=== PATIENT | male | born 1935 | race Caucasian/White ===

== ENCOUNTER → 2017-10-01 08:05 | Outpatient (CLI) | payer MEDICARE | END | disposition home or self-care (01) | LOC: D.CT 08:00 | DX: R94.30 Abnormal result of cardiovascular function study, unspecified (principal); I65.23 Occlusion and stenosis of bilateral carotid arteries ==

== ENCOUNTER 2018-09-23 12:28 | Outpatient (CLI) | payer MEDICARE ==
[~2018-09-23] VITALS: Ht 182.9 cm; Wt 109.5 kg
--- NOTE | ~2018-09-23 | HEMODYNAMI ---
PATIENT:CADE HERRON MEDICAL RECORD: [id number] : 39 LOCATION:[facility] ADMISSION DATE: 09/23/18 Generatedon:09/23/201814:22 Patient name: CADE HERRON Patient #: [id number] SSN: : 1935 Date of study: 09/23/2018 Page: Of Hemodynamic Procedure Report Patient Data Patient Demographics Procedure consent was obtained First Name: CADE Gender: Male Last Name: GOPAL : 1935 Patient #: [id number] Age: 83 year(s) Race: Unknown Additional ID: [id number] Contact details Address: [address] [address] State: [place] City: [place] Zip code: [address] Past Medical History Allergies Allergen Reaction Date Comments Reported Iodine 09/23/2018 Admission Admission Data Admission Date: 09/23/2018 Admission Time: 12:28 Lab Results Lab Result Date: 09/23/2018 Lab Result Time: 0:00 Biochemistry Name Units Result Min Max BUN mg/dl 23 --(----)-* 7 18 Creatinine mg/dl 1.4 --(----)*- 0.6 1.3 CBC Name Units Result Min Max Hemoglobin g/dl 11.4 *-(----)-- 13.5 17.5 Procedure Procedure Types Cath Procedure Diagnostic Procedure LHC C w/Coronaries Procedure Description Procedure Date Procedure Date: 09/23/2018 Procedure Start Time: 14:05 Procedure End Time: 14:18 Procedure Staff Name Function Jeff Phoenix MD Performing Physician Mi Redman RN Nurse Alexandru Roper RT Monitor Constantino Robledo RT Scrub Procedure Data Cath Procedure Fluoroscopy Diagnostic fluoroscopy Total fluoroscopy Time: 2.7 time: 2.7 min min Diagnostic fluoroscopy Total fluoroscopy dose: 747 dose: 747 mGy mGy Contrast Material Contrast Material Type Amount (ml) Isovue 300 71 Entry Location Entry Primary Successful Side Size Upsize Upsize Entry Closure Recinos ccessful Closure Location (Fr) 1 (Fr) 2 (Fr) Remarks Device Remarks Radial Right 6 Fr Mechanical artery Short Compression Diagnostic catheters Device Type Used For End Catheter Placement DIAGNOSTIC Yomi 110cm LV Angiography 5Fr catheter ([id number]) Procedure Complications No complications Procedure Medications Medication Administration Route Dosage 0.9% NaCl I.V. 100 ml/hr Oxygen etCO2 Nasal cannula 2 l/min Lidocaine 2% added to field 20 Heparin Flush Bag added to field 2 bags (1000units/500ml NS) Radial Cocktail added to field 1 syringe (Verapomil 2mg/Nitro 400mcg/Heparin 1500units) Versed I.V. 2 mg Fentanyl I.V. 50 mcg Versed I.V. 1 mg Hemodynamics Rest HGB: 11.4 (g/dl) Heart Rate: 67 (bpm) Pressure Samples Time Site Value (mmHg) Purpose Heart Use Rate(bpm) 14:07 LV 133/6,19 EDP 67 14:07 LV 128/7,18 Snapshot 66 14:08 AO 115/53(81) Pullback 66 14:08 LV 135/5,20 Pullback 66 Gradients Valve Time Site 1 Site 2 Mean SEP/DFP Peak To Heart Use (mmHg) (sec/min) Peak Rate (mmHg) (bpm) Aortic 14:08 LV AO 18 20 20 66 135/5,20 115/53(81) Calculations Valve P-P Mean Valve Index Valve Source Name Gradient Area Flow (cm2) Aortic 20 18 20 18 Snapshots Pre Cath Intra NCS Post Cath Vital Signs Time Heart Resp SPO2 etCO2 NIBP (mmHg) Rhythm Pain Sedation Rate (ipm) (%) (mmHg) Status Level (bpm) 13:48:48 68 19 100 35.9 154/83(140) NSR 0 (11) 10(A) , No pain 13:53:18 65 17 100 33.6 150/80(123) NSR 0 (11) 10(A) , No pain 13:57:45 65 14 99 17.9 147/75(122) NSR 0 (11) 10(A) , No pain 14:02:08 66 15 99 22.2 137/78(117) NSR 0 (11) 10(A) , No pain 14:06:35 69 13 98 26.7 145/60(108) NSR 0 (11) 10(A) , No pain 14:10:57 66 15 96 34.4 130/62(96) NSR 0 (11) 9(A) , No pain 14:15:25 67 17 96 32.8 129/66(106) NSR 0 (11) 10(A) , No pain Medications Time Medication Route Dose Verified Delivered Reason Notes E ffectiveness by by 13:47:48 0.9% NaCl I.V. 100 Jeff Mi used for ml/hr Alban Redman home health outreach coordinator 13:47:54 Oxygen etCO2 2 l/min Jeff Mi used for Nasal Alban Redman procedure cannula RN 13:47:59 Lidocaine 2% added 20ml Jeff Jeff for local to vial Alban Phoenix MD anesthetic field 13:48:05 Heparin Flush added 2 bags Jeff Jeff used for Bag to Alban Phoenix MD procedure (1000units/500ml field NS) 13:48:11 Radial Cocktail added 1 Jeff Jeff used for (Verapomil to syringe Alban Phoenix MD procedure 2mg/Nitro field 400mcg/Heparin 1500units) 14:04:38 Versed I.V. 2 mg Jeff Mi for Alban Redman sedation RN 14:04:52 Fentanyl I.V. 50 mcg Jeff Mi for Alban Redman sedation RN 14:09:19 Versed I.V. 1 mg Jeff Mi for Alban Redman sedation automobile parts assembler Log Time Note 13:28:48 Alexandru Roper RT(R) sent for patient. Start room use. 13:28:49 Time tracking: Regular hours (M-F 7:00 - 5:00) 13:28:53 Plan of Care:Hemodynamics will remain stable., Cardiac rhythm will remain stable., Comfort level will be maintained., Respiratory function will remain adequate., Patient/ family verbilizes understanding of procedure., Procedure tolerated without complication., Recovers from procedure without complications.. 13:41:04 Patient received from Pre/Post Procedure Room to CCL 1 Alert and oriented. Tansferred to table in Supine position. 13:41:06 Warm blankets applied, and kelsie hugger turned on for patient comfort. 13:41:07 Correct patient and procedure confirmed by team. 13:41:09 Signed procedure consent form obtained from patient. 13:41:10 ECG and BP/O2 sat monitors applied to patient. 13:47:22 Vital chart was started 13:47:48 0.9% NaCl 100 ml/hr I.V. was administered by Mi Redman RN; used for procedure; 13:47:54 Oxygen 2 l/min etCO2 Nasal cannula was administered by Mi eRdman RN; used for procedure; 13:47:59 Lidocaine 2% 20ml vial added to field was administered by Jeff Phoenix MD; for local anesthetic; 13:48:05 Heparin Flush Bag (1000units/500ml NS) 2 bags added to field was administered by Jeff Phoenix MD; used for procedure; 13:48:11 Radial Cocktail (Verapomil 2mg/Nitro 400mcg/Heparin 1500units) 1 syringe added to field was administered by Jeff Phoenix MD; used for procedure; 13:56:17 Baseline sample Acquired. 13:56:21 Rhythm: sinus rhythm 13:56:22 Full Disclosure recording started 13:56:31 H&P Date Dictated: 09/21/2018 Within 30 days and on chart., H&P Addendum completed by physician on day of procedure. (MUST COMPLETE FOR ALL OUTPATIENTS). 13:56:32 Pre-procedure instructions explained to patient. 13:56:33 Pre-op teaching completed and patient verbalized understanding. 13:56:36 Family in patients room. 13:56:38 Patient NPO since Midnight. 13:56:49 Patient allergic to Iodine 13:56:56 Is the patient allergic to Iodine/contrast media? Yes. 13:56:58 Was the patient premedicated? Yes 13:57:01 Is patient on blood thinner?Yes 13:57:04 ACC The patient was administered the following blood thiners within the last 24 hours: ACCPlavix 13:57:21 Patient diabetic? Yes. 13:57:23 If diabetic: On Metformin? No 13:57:24 ----Pre-sedation anethsthesia assessment.---- 13:57:27 Previous problem with sedation/anesthesia? No ? 13:57:28 Snore? Yes 13:57:30 Sleep apnea? Yes 13:57:31 Deviated septum? No 13:57:33 Opens mouth fully? Yes 13:57:34 Sticks out tongue? Yes 13:57:36 Airway obstruction? No ? 13:57:38 Dentures? No ? 13:57:41 Pre procedure: right dorsailis pedis pulse 1+ Palpable, but thready & weak; easily obliterated 13:57:49 Patient pain scale 1/10 ?. 13:57:51 Patient pain scale 0/10 ?. 13:58:04 IV patent on arrival in left forearm with 0.9% NaCl at 10ml/hr. 14:02:23 Lab Result : Creatinine 1.4 mg/dl 14::23 Lab Result : BUN 23 mg/dl 14:02:23 Lab Result : Hemoglobin 11.4 g/dl 14:04:05 Zero performed for pressure channel P1 14:04:26 Lab results completed and on chart. 14:04:30 Right Radial & Right Groin area was prepped with chlora-prep and draped in sterile fashion 14:04:30 Alarms reviewed by R. N. 14:04:31 Sharps counted by scrub and verified by R.N. 14:04:32 Physician arrived 14:04:32 --------ALL STOP TIME OUT------ 14:04:33 Final Timeout: patient, procedure, and site verified with staff and physician. All members of the team are in agreement. 14:04:35 Right Radial & Right Groin site verified by team. 14:04:38 Versed 2 mg I.V. was administered by Mi Redman RN; for sedation; 14:04:38 Physical assessment completed. ASA score P 2 - A patient with mild systemic disease as per Jeff Phoenix MD. 14:04:42 Sedation plan: IV Moderate Sedation Medication:Versed, Fentanyl 14:04:49 Use device set Radial Dx or PCI 14:04:50 ACIST Syringe (07348) opened to sterile field. 14:04:51 Medline Cath Pack ([id number]) opened to sterile field. 14:04:51 Bag Decanter (2002S) opened to sterile field. 14:04:52 Fentanyl 50 mcg I.V. was administered by Mi Redman RN; for sedation; 14:04:52 DIAGNOSTIC WIRE .035 260cm J wire (003334) opened to sterile field. 14:04:53 ACIST Hand Control (84965) opened to sterile field. 14:04:53 ACIST Manifold (21712) opened to sterile field. 14:04:54 Tegaderm 4 x 4 (1626W) opened to sterile field. 14:04:55 MBrace Wrist Support ([id number]) opened to sterile field. 14:05:16 SHEATH 6FR RAIN (0155246) NO COST SUPPLY opened to sterile field. 14:05:21 Procedure started. 14:05:44 Local anesthetic to right radial artery with Lidocaine 2% by Jeff Phoenix MD.INITIAL ACCESS ONLY 14:06:03 A 6 Fr Short sheath was inserted into the Right Radial artery 14:06:12 A DIAGNOSTIC Yomi 110cm 5Fr catheter (938526) was advanced over the wire and used for LV Angiography. 14:07:49 LV angiography performed. 14:07:50 LV hemodynamics recorded. 14:07:53 LV gram done using REBOLLAR 14:08:00 EF : 55 % 14:09:19 Versed 1 mg I.V. was administered by Mi Redman RN; for sedation; 14:10:24 LCA angiography performed. 14:11:43 RCA angiography performed. 14:14:20 Catheter removed. 14:14:41 Contrast amount:Isovue 300 71ml. 14:16:19 Sheath removed intact; hemostasis achieved with Mechanical Compression to the Right Radial artery. 14:16:21 Procedure ended.(Physican Out) 14:16:47 Fluoroscopy time 02.70 minutes. 14:16:53 Fluoroscopy dose: 747 mGy 14:16:53 Flurop Dose total: 747 14:16:54 Sharps counted by scrub and verified by R.N. 14:16:58 TR band inflated with 0cc of air. 14:17:05 Post procedure rhythm: sinus rhythm 14:17:07 Post procedure instruction explained to patient.Patient verbalizes understanding. 14:17:19 Procedure and supply charges have been captured, reviewed, submitted and are correct. 14:17:40 TR BAND Standard ([id number]) opened to sterile field. 14:17:55 Procedure Complication : No complications 14:17:57 Vital chart was stopped 14:17:58 See physician's report for complete and final results. 14:18:01 Report given to Pre/Post Procedure Room. 14:18:05 Patient transfered to Pre/Post Procedure Room with Stretcher. 14:18:07 Procedure ended. 14:18:07 Full Disclosure recording stopped 14:18:11 End room use (Document Last) Device Usage Item Name Manufacture Quantity Catalog Hospital Part Current Minimal Lot# / Number Charge Number Stock Stock Serial# Code ACIST Acist 1 59250 488726 475475 737890 20 Syringe Medical (51633) Systems Inc Medline Medline 1 [id number] 844296 92980 709593 5 Cath Pack ([id number]) Bag Microtek 1 2001S 765609 47798 190146 5 Decanter Medical Inc. (2001S) DIAGNOSTIC [facility] [place] 1 437141 220367 886936 651407 30 WIRE .035 260cm J wire (915609) ACIST Hand Acist 1 56178 664234 542488 272291 5 Control Medical (20408) Systems Inc ACIST Acist 1 02465 433589 458225 753342 5 Manifold Medical (07376) Systems Inc Tegaderm 4 3M 1 1626W 114914 460949 643013 5 x 4 (1626W) MBrace Advanced 1 140-0250-00 371182 40921 904120 5 Wrist Vascular Support Dynamics ([id number]) SHEATH 6FR Cardinal 1 6591663 654633 260189 5 [facility] (1759433) NO COST SUPPLY DIAGNOSTIC Terumo 1 21-5675 205984 787920 015441 5 Yomi 110cm 5Fr catheter (240768) TR BAND Terumo 1 [id number] 516410 777748 966185 40 Standard ([id number]) Signature Audit Jasper Stage Time Signature Unsigned Intra-Procedure 09/23/2018 Constantino Robledo RT(R) 2:22:16 PM Signatures Monitor : Alexandru Roper RT Signature : Date : Time : [facility] [address] [place] [address]
[2018-09-23 11:29] VITALS: BP 156/60; Ht 182.9 cm; Wt 109.5 kg
[2018-09-23 11:33] LABS: BASOPHILS 0.4 % (0-2); EOSINOPHILS 3.2 % (0-7); HEMATOCRIT 35.4 % (42.0-54.0); HEMOGLOBIN 11.4 g/dL (13.5-17.5); IMMATURE GRANULOCYTES 0.4 % (0-5); LYMPHOCYTES 22.7 % (15-50); MCH 29.5 pg (26.0-34.0); MCHC 32.2 g/dL (31.0-37.0); MCV 91.5 fL (80.0-100.0); MEAN PLATELET VOLUME 10.2 fL (7.4-10.4); MONOCYTES 9.6 % (2-11); NEUTROPHILS 63.7 % (40-80); PLATELET COUNT 123 10x3/uL (130-400); RBC 3.87 10x6/uL (4.20-6.10); RDW 13.5 % (11.5-14.5)
[2018-09-23 11:49] LABS: ANION GAP 12.7 mmol/L (8-16); CALCIUM 8.6 mg/dL (8.5-10.1); CREATININE - SERUM 1.4 mg/dL (0.6-1.3); POTASSIUM - SERUM 4.7 mmol/L (3.5-5.1)
[~2018-09-23 12:28] MED LIST: ASPIRIN81 MG PO; GLIMEPIRIDE2 MG PO; LIPITOR80 MG PO; LISINOPRIL5 MG PO; OMEPRAZOLE40 MG PO; PIOGLITAZONE15 MG PO; PLAVIX75 MG PO; PROBENECID500 MG PO; VENTOLIN HFA18 GM INH; ZANTAC300 MG PO; ZYLOPRIM300 MG PO
--- NOTE | 2018-09-23 14:35 | NUR ---
DR. FLORES AT BEDSIDE SPEAKING WITH PT AND PT'S FAMILY. RIGHT WRIST TR BAND IN PLACE. NO BLEEDING/HEMATOMA NOTED.
--- NOTE | 2018-09-23 14:51 | NUR ---
DR. FLORES TO GO AND SPEAK WITH DR. HAMILTON REGARDING SURGERY CONSULT.
--- NOTE | 2018-09-23 15:20 | NUR ---
RIGHT WRIST TR BAND IN PLACE. NO HEMATOMA OR BLEEDING NOTED. PT SITTING UP AND EATING SANDWICH. DENIES NAUSEA. VSS. FAMILY AT BEDSIDE.
--- NOTE | 2018-09-23 15:49 | NUR ---
3cc OF AIR REMOVED FROM TR BAND. NO BLEEDING/HEMATOMA NOTED.
--- NOTE | 2018-09-23 16:08 | NUR ---
DR. HAMILTON AT BEDSIDE.
--- NOTE | 2018-09-23 16:20 | NUR ---
3cc OF AIR REMOVED FROM TR BAND. NO BLEEDING/HEMATOMA NOTED.
[2018-09-23] MEDS ORDERED: LASIX40 MG PO (16:21)
[2018-09-23] MEDS ORDERED: K-DUR20 MEQ PO (16:21)
--- NOTE | 2018-09-23 16:45 | NUR ---
2cc REMOVED FROM TR BAND. NO BLEEDING OR HEMATOMA NOTED. LEFT AC PIV D/C'D WITH CATH TIP INTACT. PT TOLERATED WELL.
--- NOTE | 2018-09-23 16:55 | NUR ---
PT AMBULATED TO RESTROOM. VOIDED WITHOUT DIFFICULTY. TR BAND REMOVED FROM RIGHT WRIST. NO BLEEDING/HEMATOMA NOTED. DRESSING APPLIED. RIGHT WRIST BRACE IN PLACE.
--- NOTE | 2018-09-23 17:16 | NUR ---
DISCUSSED DISCHARGE INSTRUCTIONS WITH PT AND PT'S FAMILY. THEY VOICED UNDERSTANDING. RIGHT WRIST DRESSING C/D/I. NO S/S OF HEMATOMA NOTED. NO BLEEDING.
[2018-09-23 17:19] LABS: PLT FUNCT.(P2Y12) PLAVIX 254 PRU (194-418)
--- NOTE | 2018-09-23 17:20 | NUR ---
PT TAKEN OUT BY WHEELCHAIR TO VEHICLE. NO S/S OF DISTRESS NOTED. ALL BELONGINGS IN HAND.
== END 2018-09-23 17:20 | disposition home or self-care (01) ==
LOC: D.CATH 12:28
PROVIDERS: Internal Medicine Cardiovascular Disease; Thoracic Surgery (Cardiothoracic Vascular Surgery)
DX: I25.10 Atherosclerotic heart disease of native coronary artery without angina pectoris (principal)

== ENCOUNTER 2018-09-28 13:46 | Inpatient (IN) | payer MEDICARE ==
[~2018-09-28] VITALS: Ht 185.4 cm; Wt 106.2 kg
[~2018-09-28 13:46] MED LIST changes: +K-DUR20 MEQ PO; +LASIX40 MG PO
[2018-09-28] MEDS ORDERED: PIOGLITAZONE15 MG PO (14:14)
[2018-09-28 16:13] LABS: BASOPHILS 0.5 % (0-2); EOSINOPHILS 2.4 % (0-7); HEMOGLOBIN 13.3 g/dL (13.5-17.5); IMMATURE GRANULOCYTES 0.3 % (0-5); LYMPHOCYTES 17.3 % (15-50); MCH 30.1 pg (26.0-34.0); MCHC 33.3 g/dL (31.0-37.0); MCV 90.5 fL (80.0-100.0); MEAN PLATELET VOLUME 10.7 fL (7.4-10.4); MONOCYTES 13.2 % (2-11); NEUTROPHILS 66.3 % (40-80); RBC 4.42 10x6/uL (4.20-6.10); RDW 13.3 % (11.5-14.5); WBC 5.9 10x3/uL (4.8-10.8)
[2018-09-28 16:24] LABS: PROTIME 12.7 SECONDS (11.6-15.0)
[2018-09-28 16:25] LABS: APTT 27.5 SECONDS (22.8-39.4)
[2018-09-28 16:26] LABS: PLATELET COUNT 149 10x3/uL (130-400)
[2018-09-28 16:37] LABS: BILIRUBIN - TOTAL 0.46 mg/dL (0.2-1.3); CALCIUM 9.3 mg/dL (8.5-10.1); CARBON DIOXIDE 29.3 mmol/L (21.0-32.0); POTASSIUM - SERUM 4.3 mmol/L (3.5-5.1); PROTEIN - SERUM 7.9 g/dL (6.4-8.2); T4 THYROXIN - FREE 0.97 ng/dL (0.76-1.46); THYROID STIMULATING HORMONE 2.09 uIU/mL (0.36-3.74); URIC ACID 7.9 mg/dL (2.6-7.2)
[2018-09-28 17:09] LABS: APPEARANCE CLEAR (CLEAR); COLOR YELLOW (YELLOW); GLUCOSE 1000 mg/dL (NEGATIVE); KETONE NEGATIVE (NEGATIVE); NITRITE NEGATIVE (NEGATIVE); PROTEIN NEGATIVE (NEGATIVE); SPECIFIC GRAVITY 1.015 (1.005-1.020)
[2018-09-28 17:10] LABS: BILIRUBIN NEGATIVE (NEGATIVE); UROBILINOGEN NORMAL (NORMAL)
[2018-10-05 09:12] LABS: BASOPHILS 0.4 % (0-2); EOSINOPHILS 3.3 % (0-7); HEMATOCRIT 35.6 % (42.0-54.0); HEMOGLOBIN 11.9 g/dL (13.5-17.5); IMMATURE GRANULOCYTES 0.6 % (0-5); LYMPHOCYTES 17.8 % (15-50); MCHC 33.4 g/dL (31.0-37.0); MCV 89.7 fL (80.0-100.0); MEAN PLATELET VOLUME 10.3 fL (7.4-10.4); MONOCYTES 10.2 % (2-11); NEUTROPHILS 67.7 % (40-80); PLATELET COUNT 143 10x3/uL (130-400); RBC 3.97 10x6/uL (4.20-6.10); RDW 13.2 % (11.5-14.5); WBC 5.1 10x3/uL (4.8-10.8)
[2018-10-05 09:21] LABS: APTT 27.1 SECONDS (22.8-39.4); INR 1.02 (0.85-1.17); PROTIME 12.9 SECONDS (11.6-15.0)
[2018-10-05 09:24] LABS: ALBUMIN 3.5 g/dL (3.4-5.0); ANION GAP 9.3 mmol/L (8-16); BILIRUBIN - TOTAL 0.45 mg/dL (0.2-1.3); CALCIUM 8.5 mg/dL (8.5-10.1); CARBON DIOXIDE 30.5 mmol/L (21.0-32.0); CREATININE - SERUM 1.4 mg/dL (0.6-1.3); POTASSIUM - SERUM 4.8 mmol/L (3.5-5.1); PROTEIN - SERUM 7.1 g/dL (6.4-8.2)
[2018-10-05 11:42] LABS: COLOR COLORLESS (YELLOW)
[2018-10-05 11:43] LABS: APPEARANCE CLEAR (CLEAR); BACTERIA FEW /hpf (NONE SEEN); BILIRUBIN NEGATIVE (NEGATIVE); EPITHELIAL CELLS OCC /hpf (0-5); GLUCOSE 1000 mg/dL (NEGATIVE); KETONE NEGATIVE (NEGATIVE); MUCUS <1+ /lpf (NONE SEEN); NITRITE NEGATIVE (NEGATIVE); PROTEIN NEGATIVE (NEGATIVE); RED CELLS - URINE 0-5 /hpf (0-5); SPECIFIC GRAVITY 1.015 (1.005-1.020); UROBILINOGEN NORMAL (NORMAL); WHITE CELLS - URINE 0-5 /hpf (0-5)
[2018-10-08] VITALS (31 sets, daily range): BP systolic 101–163; BP diastolic 41–67; BMI 31.8; BMI 32.3
[2018-10-08] MEDS ORDERED: PROBENECID-COL1 EACH PO (05:42)
--- NOTE | 2018-10-08 13:40 | NUR ---
PT ARRIVED IN THE UNIT. PT HOOKED TO ICU MONITORS. PT SEDATED AND ON THE VENT. 7.5 ETT NOTED 23 AT THE LIP. AC 500 PEEP 5 100. PT HOOKED TO TPM. SETTINGS: AAI RATE 80, AMA 10, VMA 0, A SENSITIVIY 0.5. PT ATRIAL PACING AT 80 ON THE MONITOR. VSS. RIGHT IJ CORDIS NOTED. PLASMALYTE AT 100ML/H AND DOPAMINE AT 12.3MCG/KG/MIN (12.3ML/H) DRESSING C/D/I. MIDSTERNAL DRESSING C/D/I. SUBSTERNAL DRESSING C/D/I. 2 CT'S NOTED LABLED A AND P WITH SCANT BLOODY DRAINAGE NOTED. BOTH CONNECTED TO 20CM SUCTION WITH NO AIR LEAK. LEFT GARETT DRAIN NOTED SUBSTERNALLY COMPRESSED WITH BLOODY DRAINAGE. TPM WIRES CONNECTED TO THE PT. RIGHT A LINE NOTED WITH A WRIST PROTECTOR ON. GOOD WAVE FORM, CAP REFILL <3 SECONDS. IV NOTED TO LEFT WRIST SL. C/D/I. FC NOTED WITH CLEAR, YELLOW URINE. RLE WRAPPED IN KOBAN FROM ANKLE TO THIGH WITH A SINGLE COMPRESSED PAPO DRAIN MID LEG WITH SCANT AMOUNT OF BLOODY DRAINAGE. BLE PULSES WEAK BUT PALPABLE. WILL CONT 1:1 CARE.
--- NOTE | 2018-10-08 13:50 | NUR ---
INSURANCE POLICY CLERK AT THE PTS BEDSIDE. CXR TAKEN.
--- NOTE | 2018-10-08 14:00 | NUR ---
DR HAMILTON AT THE PTS BEDSIDE. PACEMAKER TURNED OFF AND THE PT IS NSR AT 74. WAS TOLD BY DR HAMILTON TO TURN IT OFF AND IF HE BECOMES BRADYCARDIC, TO RESUME THE PACEMAKER AT THE ORGINAL SETTINGS. WAS TOLD TO KEEP DOPAMINE AT 3MCG/KG/MIN. START JAYDEN AND TO TITRATE PER ORDRES IF NEEDED. WILL CONT TO MONITOR.
--- NOTE | 2018-10-08 14:05 | NUR ---
DR HAMILTON STATED TO DC AMIODORONE DUE TO BRADYCARDIA IN THE OR.
--- NOTE | 2018-10-08 14:09 | NUR ---
ABG'S OBTAINED PER RT. HCO3 TREATED PER ORDRES. RT DECREASED FIO2 TO 40%. PT TOLERATING WELL. VSS AT THIS TIME. REMAINS NSR. WILL CONT POC.
--- NOTE | 2018-10-08 14:15 | NUR ---
FSBS >2OO X2 CHECKS. INSULIN INITIATED PER ORDRES. 2UNIT BOLUS GIVEN AND A RATE OF 1U/H STARTED. SEE INSULIN FLOW SHEET FOR MORE DETAILS.
--- NOTE | 2018-10-08 14:40 | NUR ---
PT WAKING UP BUT REMAINS DROWSEY. RT CHANGED VENT TO SIMV 14, 500, PS 10, 40% PT TOLERATING WELL BREATHING OVER THE VENT. VSS AT THIS TIME. WILL CONT POC.
--- NOTE | 2018-10-08 14:55 | NUR ---
RT CHANGED VENT RATE TO 12. PT REMAINS TO BREATH OVER THE VENT. VSS.WILL CONT POC.
--- NOTE | 2018-10-08 15:25 | NUR ---
VSS. REMAINS NSR. RT CHANGED VENT RATE TO 10
--- NOTE | 2018-10-08 15:55 | NUR ---
PT EYE OPEN AND ABLE TO FOLLOW COMMANDS AND ANSWERING YES AND NO QUESTIONS BY SHAKING HIS HEAD. VSS RT CHANGE VENT RATE TO 8. PT DOING WELL. WILL CONT POC.
--- NOTE | 2018-10-08 16:10 | NUR ---
RT CHANGED VENT RATE TO 6. PT BREATHING 16X'S MIN. O2 SAT STABLE AT 97%. VSS. REMAINS IN NSR.
--- NOTE | 2018-10-08 16:35 | NUR ---
RT CHANGED VENT RATE TO 6. PT CONT TO BREATH OVER THE VENT. VSS.
--- NOTE | 2018-10-08 17:05 | NUR ---
RT CHANGED VENT MODE TO SPONT. PT BREATHING 19X'S MIN. VSS. PT FOLLOWING COMMANDS.
--- NOTE | 2018-10-08 17:35 | NUR ---
EDWIN'S OBTAINED. DR HAMILTON IN THE UNIT. OK TO EXTUBATE
--- NOTE | 2018-10-08 17:45 | NUR ---
PT EXTUBATED AND PLACE ON 4L VIA NC. INSTRUCTED THE PT TO COUGH. PILLOW PROVIDED AND TAUGHT THE PT TO SPLINT. PT COMPLAINED ON CHEST PAIN WHENEVER HE COUGHS. PRN MORPHINE PROVIDED PER ORDRES. SEE MAR.
--- NOTE | 2018-10-08 21:51 | NUR ---
1912 REPORT RECIEVED, ASSUMED CARE OF PATIENT. 1929 SHIFT ASSESSMENT COMPLETE, PLEASE SEE FLOW SHEETS FOR DETAILS. VSS. 400 I.S. SEEN, ENCOURAGED DEEP BREATHING OFTEN AND COUGHING, PATIENT HAD WEAK EFFORTS FOR BOTH, EDUCATED ON NEED FOR BOTH, SEE I.S. FLOW SHEET FOR FURTHER TREATMENTS. 1999 ENCOURAGING I.S. AND COUGHING. SEE FLOW SHEET. 2044 GAVE PAIN MED PATIENT C/O PAIN 10/10 AT INCISION SITE, ENCOURAGED COUGHING/DEEP BREATHING, STATED IF HE DID NOT TRY BETTER WOULD NOT GIVE ANY MORE PAIN MEDS, SPO2 94% ON 3L, TITRATING TO EFFECT. 75 ML OUT IN LEFT GARETT DRAIN - EMPTIED USING STERILE TECHNIQUE. WILL CONTINUE PLAN OF CARE. 2099 ENCOURAGED I.S. AND COUGHING, SUCTION IN REACH, SEE FLOW SHEET. 2149 STARTING TO EXPECTORATE SPUTUM INTO SUCTION. NICHOLE IN COLOR. WILL CONTINUE TO MONITOR.
--- NOTE | 2018-10-08 23:00 | NUR ---
REASSESSMENT COMPLETE, PLEASE SEE FLOW SHEETS FOR DETAILS. VITAL SIGNS STABLE. C/O PAIN 8/ - REFUSED PAIN MEDS. 500 ON I.S. AND COUGHING OBSERVED, WEAK EFFORT FOR BOTH, ENCOURAGING BOTH. DENIES NEEDS. WILL CONTINUE PLAN OF CARE.
[2018-10-09] VITALS (54 sets, daily range): BP systolic 87–145; BP diastolic 37–469; BMI 33.1
--- NOTE | 2018-10-09 | NUR ---
DANGLED AT SIDE OF BED. COUGHING ENCOURAGED, 750 ON I.S. OBSERVED. SIPS OF WATER TAKEN. ALL TUBES/LINES INTEGRITY MAINTAINED. TOELRATED WELL. VSS. WILL CONTINUE PLAN OF CARE.
--- NOTE | 2018-10-09 01:00 | NUR ---
ENCOURAGED COUGHING/DEEP BREATHING, 500 ON I.S. NOTED. C/O PAIN, WILL TREAT PER ORDERS. VSS. WILL CONTINUE PLAN OF CARE.
--- NOTE | 2018-10-09 05:00 | NUR ---
0300 REASSESSMENT COMPLETE, PLEASE SEE FLOW SHEETS FOR DETAILS. VSS, CONTINUED PLAN OF CARE. 0500 AT BEDSIDE, UPDATE GIVEN. VSS, I.S. WITNESSED AND ENCOURAGED DEEP BREATHING/COUGHING. WILL CONTINUE PLAN OF CARE.
[2018-10-09 06:22] LABS: HEMATOCRIT 28.9 % (42.0-54.0); HEMOGLOBIN 9.5 g/dL (13.5-17.5); MCH 29.6 pg (26.0-34.0); MCHC 32.9 g/dL (31.0-37.0); MEAN PLATELET VOLUME 10.1 fL (7.4-10.4); RBC 3.21 10x6/uL (4.20-6.10); RDW 13.6 % (11.5-14.5); WBC 11.9 10x3/uL (4.8-10.8)
[2018-10-09 06:40] LABS: ALBUMIN 2.8 g/dL (3.4-5.0); ANION GAP 15.7 mmol/L (8-16); BILIRUBIN - TOTAL 0.37 mg/dL (0.2-1.3); CARBON DIOXIDE 25.6 mmol/L (21.0-32.0); CREATININE - SERUM 1.6 mg/dL (0.6-1.3); POTASSIUM - SERUM 5.3 mmol/L (3.5-5.1); PROTEIN - SERUM 5.7 g/dL (6.4-8.2)
--- NOTE | 2018-10-09 12:05 | OP ---
PATIENT NAME: CADE HERRON MEDICAL RECORD: [id number] :39 LOCATION:[facility] D.CV03 ADMISSION DATE:10/08/18 SURGEON: KAMLESH HAMILTON MD DATE OF OPERATION: 10/08/2018 SURGEON: Kamlesh Hamilton MD PRIVACY OFFICER: Elmira Sigala MD, and Manjeet Jamil. OPERATION PERFORMED: 1. Coronary artery bypass graft times 4 (left internal mammary to LAD, reverse saphenous vein graft from aorta to ramus intermedius sequenced on the first obtuse marginal and aorta to right coronary artery). 2. Endoscopic saphenous vein harvest. PREOPERATIVE DIAGNOSIS: Coronary artery disease. POSTOPERATIVE DIAGNOSIS: Coronary artery disease. ANESTHESIA: General endotracheal anesthesia. ESTIMATED BLOOD LOSS: Total cardiopulmonary bypass with Cell Saver retransfusion. COMPLICATIONS: None. SPECIMENS: None. CONDITION: Stable. DISPOSITION: CV ICU. OPERATIVE FINDINGS: 1. Transesophageal echocardiography revealed trace mitral regurgitation with good contractility and this was unchanged after cardiopulmonary bypass. 2. 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 3. Relatively large fatty heart. 4. Good quality left internal mammary artery. The LAD was a 1.5 mm severely diseased vessel with plaque down to the second diagonal. The first diagonal was small and not suitable for grafting with severe disease. 5. Ramus intermedius was a 2.0-mm vessel with severe proximal plaque. This was a [id number]-wesh anastomosis to the first obtuse marginal graft. The first obtuse marginal was a 1.5 mm vessel with severe disease. The more distal obtuse marginal was small and tortuous and was not grafted. 6. Right coronary artery had plaque in the mid vessel, but just before the bifurcation was a 2.5 mm vessel. 7. Separation from cardiopulmonary bypass with atrioventricular pacing and later atrial pacing only due to sinus bradycardia. OPERATIVE INDICATION: Coronary artery disease. DESCRIPTION OF PROCEDURE: The patient was brought to the operating suite. General anesthesia was obtained. The patient was prepped and draped. Greater OPERATIVE REPORT [id number] CADE HERRON saphenous vein was harvested utilizing endoscopic technique. Side branches divided with electrocautery. Bleeding was obtained in the tunnel. Interrupted bridging incisions were made. Side branches were clipped. The vessel was ligated proximally and distally and removed. This portion of the procedure was performed by Dr. Sigala. All side branches were oversewn or sutured. Use of the physiotherapy assistant surgeon saved approximately 1 hour of general anesthetic time. Later, the leg was closed in 2 layers with skin clips and wrapped in elastic wrap. Median sternotomy incision was made. Subcutaneous tissue was divided by electrocautery. The sternum was divided with a saw. Left hemisternum was elevated. The left pleural cavity was entered. Left internal mammary artery and was taken down as a pedicle graft. Sternal retractor was placed. Pericardium was opened. Heparin was given. The aorta was cannulated. Dual stage venous cannula was inserted. The internal mammary was clipped distally and made ready for anastomosis. After activated clotting times were appropriately elevated, the patient was placed on cardiopulmonary bypass. Sites for distal anastomoses were selected. Antegrade cardioplegic cannula was inserted. The patient was cooled. Crossclamp was placed. Cardioplegia was given antegrade and this was repeated at 15 to 20 minute intervals including down the completed vein graft. Distal anastomosis was performed in standard technique. Proximal anastomosis with single cross-clamp technique. Aortic root was de-aired, cross clamp removed. Proximal anastomosis tied down. Vein graft de-aired and flow restored. A single 7-0 on the distal right graft. A single 6-0 in the proximal. The patient had atrial ventricular pacing wires placed and was paced, fully rewarmed, weaned from cardiopulmonary bypass and was stable. The patient was decannulated. The cannula sites were oversewn. Protamine was given. Thorough irrigation was undertaken. Hemostasis was assured. The graft lay appropriately. Good Doppler signal was noted. The left chest was evacuated and irrigated. A drain was placed in the mediastinum and left pleural cavity. The pericardial flap was loosely reapproximated in 3 sites. The internal mammary harvest site was hemostatic. Sternal closed with wires. Fascia was closed. Subcutaneous tissue was closed. The skin was closed. Dermabond was placed. The needle and sponge counts were correct and the patient was taken to the ICU in stable condition. TRANSINT:[id number] Voice Confirmation ID: [id number] DOCUMENT ID: [id number] KAMLESH HAMILTON MD at 1205 CC: CARLOS FLORES M.D. and MICHELLE WARNER DO [id number] DICTATION DATE: 10/08/18 1659 ORDER MANAGEMENT SPECIALIST: 10/08/182002 ADM IN [facility] [address] [id number]
--- NOTE | 2018-10-09 18:30 | NUR ---
0715-RECIEVED PER FLOW SHEET-UP IN CHAIR-R IJ INFUSING PLASMALYTE AT 95ML/H-ZINACEF AT 11.4/INSULIN GTT AT 2/DOPAMINE AT 3MCG/KG/MIN- SR ON MONITOR-NO AIR LEAK NOTED TO CHEST TUBES 1030-PHYSICAL THERAPY AT BEDSIDE-ASSISTED TO BED-TOLERATED WELL 1200-DR HAMILTON AT [facility]-PT PREPPED FOR REMOVAL OF CHEST TUBES-AND SAME DONE BY DR HAMILTON-PACER WIRES DISCONNECTED-AND SECURED-R RADIAL KELVIN DISCONTINUED-ROBLERO CATH LEFT IN PLACE DIRECTED 1445-NEOSYNEPHRINE GTT STARTED AT 0.2 MCG/KG/MIN- DIRECTED BY DR HAMILTON-PLASMALYTE DECREASED TO 20ML/H CARRIER-DOPAMINE DECREASED TO 2MCG-PT CONTINUE TO C/O NAUSEA-DISCOURAGED FOOD AT THIS TIME AND ZOFRAN GIVEN 1600 NEOSYNEPHRINE GTT INCREASED TO 0.25-DOPAMINE GTT WEANED OFF DIRECTED 1745-NOTED RR 33-ABD DISTENDED AND FIRM-C/O NAUSEA-DR EMERY NOTIFIED OF SAME ABG DRAWN ORDERED 1829-FR 14 NGT PLACED ON FIRST TRY AND CONFIRMATION XRAY DONE
--- NOTE | 2018-10-09 20:07 | MORECARE ---
CASE MANAGEMENT DISCHARGE SUMMARY PATIENT: CADE HERRON UNIT: [id number] ADM DATE: 10/08/18 AGE: 83 : 37 SEX: M [facility] AUTHOR: CHAD LIU PHYSICIAN: REFERRING PHYSICIAN: ANDRIA HAMILTON MD DATE OF SERVICE: 10/09/18 Discharge Plan Patient Name: CADE HERRON [facility] [facility] 1935 Planned Disposition: Anticipated Discharge Date: Discharge Date: Expected LOS: Initial Reviewer: [email or web address] Initial Review Date: 10/08/2018 Generated: 10/09/18 9:07 pm Comments DCP- Discharge Planning Updated by [email or web address]: Carla Abdi on 10/09/18 7:[address] CM attempted to meet with patient at bedside. He is currently having NG tube placed. CM will continue to follow and assist as needed with discharge planning / needs. Patient Name: CADE HERRON Page [phone] at 2007 All edits/amendments must be made on the electronic document DICTATION DATE: 10/09/182005 DIAGNOSTIC SALES SPECIALIST: EVA 10/09/182005 RPT#: [id number] DC DATE: STATUS: ADM IN [facility] [address] [place] [address] END OF REPORT
--- NOTE | 2018-10-09 20:54 | NUR ---
1927 REPORT RECIEVED, ASSUMED CARE OF PATIENT. 1929 SHIFT ASSESSMENT COMPLETE, PLEASE SEE FLOW SHEETS FOR DETAILS. VSS. 1999 NGT INSERTED TO RIGHT NOSTRIL, KUB/CHEST XRAY FOR PLACEMENT, PH TEST FOR PLACEMENT SHOWED PH OF 2. IMMEDIATE OUTPUT OF 350, CLEAR/PINK. NGT TO LIS. TOLERATED WELL, VSS. WILL CONTINUE PLAN OF CARE.
--- NOTE | 2018-10-09 22:17 | NUR ---
213 PER RADIOLOGIST, ADVANCED NGT 5 CM. TOLERATED WELL. 0 GAVE MEDS THROUGH NGT, FLUSHED WITH 10ML H2O PRE AND PODT ADMINISTRATION. HELD LIS. 2210 LIS CONTINUED.
[2018-10-10] VITALS (65 sets, daily range): BP systolic 99–132; BP diastolic 30–523
--- NOTE | 2018-10-10 00:13 | NUR ---
2300 REASSESSMENT COMPLETE, PLEASE SEE FLOW SHEETS FOR DETAILS. NO ACUTE CHANGES FROM PREVIOUS ASSESSMENT TO NOTE. VSS. WILL CONTINUE PLAN OF CARE.
--- NOTE | 2018-10-10 03:06 | NUR ---
0100 REPOSITIONED FOR COMFORT. VSS. CARE CONTINUED, SEE FLOW SHEETS. 0300 REASSESSMENT COMPLETE, PLEASE SEE FLOW SHEETS FOR DETAILS. NO ACUTE CHANGES FROM PREVIOUS ASSESSMENT TO NOTE. VSS. WILL CONTINUE PLAN OF CARE.
[2018-10-10 06:04] LABS: HEMATOCRIT 28.4 % (42.0-54.0); HEMOGLOBIN 9.1 g/dL (13.5-17.5); MCH 29.4 pg (26.0-34.0); MCV 91.9 fL (80.0-100.0); MEAN PLATELET VOLUME 10.1 fL (7.4-10.4); RBC 3.09 10x6/uL (4.20-6.10); RDW 14.1 % (11.5-14.5); WBC 13.1 10x3/uL (4.8-10.8)
--- NOTE | 2018-10-10 06:33 | NUR ---
0500 PATIENT YELLING, UPON ENTERING ROOM, PIV IN RIGHT WRIST OUT, BLEEDING HAD STOPPED. PATIENT WAS AGRESSIVE WITH NURSING STAFF, ATTEMPTING TO BITE, SCRATCH, AND SPIT ON NURSING STAFF. RESTRAINTS APPLIED, MASK PUT OVER MOUTH, NOSE LEFT UNCOVERED. FULL BED BATH AND LINEN CHANGE PROVIDED. PIV X2 IN BILATERAL AC STARTED 20G EACH, FLUIDS RESTARTED. VSS. WILL CONTINUE PLAN OF CARE.
--- NOTE | 2018-10-10 06:40 | NUR ---
0450 STARTED BED BATH, WAS INTERRUPTED, VSS. 0540 FULL BED BATH PROVIDED. ROBLERO CARE PROVIDED. TOLERATED WELL. FULL LINEN CHANGE PROVIDED. UP TO CHAIR WITH ASSIST. TOLERATED WELL. VSS. WILL CONTINUE PLAN OF CARE.
[2018-10-10 06:41] LABS: ALBUMIN 2.7 g/dL (3.4-5.0); BILIRUBIN - TOTAL 0.36 mg/dL (0.2-1.3); CALCIUM 8.1 mg/dL (8.5-10.1); CARBON DIOXIDE 27.4 mmol/L (21.0-32.0); PROTEIN - SERUM 6.1 g/dL (6.4-8.2)
[2018-10-10 06:46] LABS: ANION GAP 12.9 mmol/L (8-16); CREATININE - SERUM 2.1 mg/dL (0.6-1.3); POTASSIUM - SERUM 4.3 mmol/L (3.5-5.1)
--- NOTE | 2018-10-10 08:00 | NUR ---
AWAKE AND ALERT SKIN WARM AND DRY. NG OFF DUE TO MEDS GIVEN. UP IN CHAIR AT BEDSIDE. DRESSING DRY AND INTACT CHEST, SUBSTERNAL AND RIGHT LEG. GARETT DRAIN COMPRESSED WITH SERSANG DRAINAGE. INCENTIVE SPIROMETRY DONE WITH POOR EFFORT TO 500 ML, WEAK COUGH. SPLINTING WITH PILLOW DONE WITH COUGHING. RIJ INFUSING WITH PLASAMALYTE AT 20 ML HOUR, NEOSYNPHRINE GTT AT 0.25 MCG/KG/MIN. INSULIN GTT AT 3 UNITS HOUR. PAIN AT 2 LEVEL. NO DISTRESS. ENCOURAGE TO USE INCENTIVE EVERY COMMERICAL ON TV.
--- NOTE | 2018-10-10 09:30 | NUR ---
INSULIN GTT OFF. FINGER STICK BLOOD SUGAR 85. PATIENT AWAKE AND ALERT UP IN CHAIR AT BEDSIDE
--- NOTE | 2018-10-10 09:30 | NUR ---
PATIENT REQUESTING SOMETHING TO EAT. REMINDED HE COULD NOT EAT UNTIL NG REMOVED OR MD APPROVES. DENIES PASSING ANY GAS AT THIS TIME. AND DAUGHTER AT BEDSIDE
--- NOTE | 2018-10-10 11:00 | NUR ---
DR. EMERY HERE NEW ORDERS RECEIVED. 1/2NS BOLUS 250 ML INFUSING. ALBUMIN INFUSING. WEAN NEOSYNPHRINE TOLERATED.
--- NOTE | 2018-10-10 12:30 | NUR ---
STOOD AT BEDSIDE WITH ASSISTANCES OF 2 NURSES TOLERATED WELL. WALKED IN PLACE. GARETT DRAIN EMPTIED 90CC SERSANG FLUID. DRESSING DRY AND INTACT. MONITOR SR WITH FREQ PAC.
--- NOTE | 2018-10-10 14:00 | NUR ---
WALKED IN [place] PER PHYSCIALTHERAPY. RETURNED TO BED. ENCOURAGE TO DEEP BREATH AND COUGH. DRESSING DRY AND INTACT.
--- NOTE | 2018-10-10 16:00 | NUR ---
75 ML DRAINED FROM GARETT DRAIN OJNI. PATIENT NAPPING AT INTERVALS. FAMILY AT BEDSIDE. NG TO LOW INTERMITTENT SUCTION BROWN DRAINAGE NOTED SMALL AMOUNT. 1/2 NS INFUSING RIJ AT 100 ML HOUR. SCD ON LOWER LEGS. DRESSING DRY AND INTACT.
--- NOTE | 2018-10-10 18:00 | NUR ---
REPOSTIONED ON RIGHT SIDE. DRESSING DRY AND INTACT. PAIN PILL GIVEN. HEAD OF BED ELEVATED 30 DEGREES. AT BEDSIDE
--- NOTE | 2018-10-10 19:00 | NUR ---
REPORT RECIEVED, SHIFT ASSESSMENT COMPLETE, PLEASE SEE FLOW SHEETS FOR DETAILS. IN BED, VSS, AT BEDSIDE, NO NEEDS. WILL CONTINUE PLAN OF CARE.
--- NOTE | 2018-10-10 23:35 | NUR ---
2100 TURNING PROVIDED. VSS. CONTINUED PLAN OF CARE, SEE FLOW SHEETS. 2300 REASSESSMENT COMPLETE, PLEASE SEE FLOW SHEETS FOR DETAILS. NO ACUTE CHANGES FROM PREVIOUS ASSESSMENT TO NOTE. TURNING PROVIDED. VSS. WILL CONTINUE PLAN OF CARE.
[2018-10-11] VITALS (24 sets, daily range): BP systolic 106–138; BP diastolic 35–56; Ht 185.4 cm; Wt 106.2 kg
--- NOTE | 2018-10-11 02:41 | NUR ---
0100 SLEEPING, VSS. PLAN OF CARE CONTINUED. 0240 REASSESSMENT COMPLETE, PLEASE SEE FLOW SHEETS FOR DETAILS. NO ACUTE CHANGES TO NOTE. VSS, CALL LIGHT IN REACH. WILL CONTINUE PLAN OF CARE.
--- NOTE | 2018-10-11 05:00 | NUR ---
FULL BED BATH/LINEN CHANGE PROVIDED. TOLERATED WELL. UP TO CHAIR POST STANDING WEIGHT. VSS. WILL CONTINUE PLAN OF CARE.
[2018-10-11 06:49] LABS: ALBUMIN 2.9 g/dL (3.4-5.0); ANION GAP 14.8 mmol/L (8-16); BILIRUBIN - TOTAL 0.51 mg/dL (0.2-1.3); CREATININE - SERUM 2.2 mg/dL (0.6-1.3); POTASSIUM - SERUM 4.8 mmol/L (3.5-5.1)
--- NOTE | 2018-10-11 07:00 | NUR ---
AWAKE UP IN CHAIR AT BEDSIDE, SKIN WARM AND DRY. ABD MORE TENDER THIS AM. LUNG SOUNDS DEEPER. UP TO 750ML ON INCENTIVE SPIROMETRY. NG TO LOW INTERMITTENT SUCTION STATES HIS THROAT MORE SORE THIS AM. CHEST SUBSTERNAL AND RIGHT LEG DRESSING DRY AND INTACT. RIJ INFUSING WITH 1/2NS AT 100 ML HOUR. ROBLERO CATH PATENT DRAINING CLEAR QIAN URINE. SCD AND MICHELLE ON LOWER EXTREMITIES.
[2018-10-11 07:04] LABS: MCH 28.7 pg (26.0-34.0); MCHC 30.8 g/dL (31.0-37.0); MCV 93.2 fL (80.0-100.0); MEAN PLATELET VOLUME 10.3 fL (7.4-10.4); RBC 2.79 10x6/uL (4.20-6.10); RDW 13.8 % (11.5-14.5)
[2018-10-11 07:07] LABS: WBC 6.5 10x3/uL (4.8-10.8)
[2018-10-11 07:34] LABS: ANION GAP 13.9 mmol/L (8-16); BILIRUBIN - TOTAL 0.5 mg/dL (0.2-1.3); CALCIUM 8.3 mg/dL (8.5-10.1); CARBON DIOXIDE 26.9 mmol/L (21.0-32.0); CREATININE - SERUM 2.3 mg/dL (0.6-1.3); MAGNESIUM - SERUM 2.5 mg/dL (1.8-2.4); POTASSIUM - SERUM 4.8 mmol/L (3.5-5.1); PROTEIN - SERUM 6.1 g/dL (6.4-8.2)
--- NOTE | 2018-10-11 08:30 | NUR ---
HERE UPDATE GIVEN. RETAPED NG TUBE. PO MEDS GIVEN PER NG TUBE.
--- NOTE | 2018-10-11 09:00 | NUR ---
AMBULATED IN [place] WITH PHYSICAL THERAPY. TOLERATED FAIR. STATES HIS LEGS ARE WEAK
--- NOTE | 2018-10-11 11:30 | NUR ---
DR. EMERY HERE. ORDERS RECEIVED TO REMOVE NG TUBE. NG TUBE DC'S. TOLERATED WELL. UP IN CHAIR ABD STILL VERY TENDER. NEEDS ENCOURAGEMENT TO DO INCENTIVE SPIROMETRY. ROBLERO CATH PATENT. URINE OUTPUT ADAQUATE. SIPS OF WATER GIVEN WITHOUT NAUSEA.
--- NOTE | 2018-10-11 13:30 | NUR ---
NO CHANGES NO DISTRESS. PAIN PILL EFFECTIVE. STATES PATIENT IS HALLUCINATING ON THEM. SEEING RATS ON THE FLOOR. WAVING ARMS IN THE AIR. DR. EMERY AWARE. AMBULATE IN [place] PER PHYSICAL THERAPY TOLERATING FAIR. IMPROVED THIS AFTERNOON COMPARED TO THIS MORNING.
[2018-10-11 14:07] LABS: HEMATOCRIT 23.3 % (42.0-54.0)
--- NOTE | 2018-10-11 14:16 | NUR ---
TO CT SCAN PER WHEEL CHAIR WITH PORTABLE OXYGEN
[2018-10-11 14:17] LABS: HEMOGLOBIN 7.4 g/dL (13.5-17.5)
--- NOTE | 2018-10-11 16:00 | NUR ---
RETURNED TO BED. HEAD OF BED ELEVATED. SCD ON LOWER LEGS. CALL LIGHT WITHIN HANDS REACH
--- NOTE | 2018-10-11 17:29 | NUR ---
BLOOD TRANSFUSION STARTED. NO ITCHING OR BACK PAIN. PATIENT FALLING ASLEEP WHILE TALKING TO HIM. IN BED. HEAD OF BED ELEVATED 30 DEGREES. SCD ON LOWER LEGS. ROBLERO CATH PATENT DRAINING QIAN URINE. DENIES PAIN UNLESS WHEN PRESS ON ABD.
--- NOTE | 2018-10-11 18:00 | NUR ---
DR. JUAN HERE. ORDERS RECEIVED. RESP THERAPY INFORMED OF ABG ORDERS. DRESSING RIGHT LEG CHANGE SEROUS DRAINAGE NOTED ON PAD. NO REDNESS OR DRAINAGE FROM INCISION. JOSE INTACT. INCISIONS CLEAN WITH BETADINE STERIL 4X4 APPLIED SECURE WITH TAPE. PAD CHANGED. NO REACTION TO BLOOD TOLERATING WELL. PATEINT DOES GET SHORT OF BREATH WHEN ABD PALPATED.
--- NOTE | 2018-10-11 18:35 | NUR ---
NO REACTION TO BLOOD. RESTING WELL NO DISTRESS.
--- NOTE | 2018-10-11 19:15 | NUR ---
REPORT RECEIVED CARE ASSUMED. INITIAL SHIFT ASSESSMENT COMPLETED SEE FLOWSHEET. PT AAOX4 WITH CLEAR SPEECH. NOTE PT IS DOZING OFF AND ON. AT BEDSIDE. CODE WORD ESTABLISHED AND RECORDED ON CHART. EMERGENCY CONTACT INFORMATION VERIFIED. PT BEING MONITORED PER STANDARD CVICU PROTOCOL WITH ALL ALARMS SET, VERIFIED AND AUDIBLE AT NURSES STATION. PT RECEIVING 1ST UNIT OF THE 2 PRBCS ORDERED. TOLERATING WELL. BED IN LOW POSITION CALL LIGHT IN REACH. PT ABLE TO MAKE NEEDS KNOWN. IV LINES AND FLUIDS ARE LABELED AND CURRENT PER PROTOCOL.
--- NOTE | 2018-10-11 21:15 | NUR ---
PRBC REQUESTED FROM BLOOD BANK. PT SET UP TO RECEIVE 2ND UNIT. HAS BEEN GIVEN LASIX DOCUMENTED ON MAR
--- NOTE | 2018-10-11 21:22 | NUR ---
MEDS GIVEN DOCUMENTED ON OCT. NO SWALLOWING DIFFICULTIES NOTED
--- NOTE | 2018-10-11 21:45 | NUR ---
2ND UNIT OF PRBC BEGAN AFTER VERIFYING AT BEDSIDE. CONSENT ON CHART. PT VERBALIZES UNDERSTANDING OF POC.
--- NOTE | 2018-10-11 22:00 | NUR ---
PT TOLERATING TRANSFUSION WITHOUT ADVERSE REACTIONS. BLOOD BEING TRANSFUSED USING DR. EMERY'S BLOOD TUBING AND WITH PAL FILTER.
--- NOTE | 2018-10-11 23:08 | NUR ---
RT AT BEDSIDE FOR RESPIRATORY TREATMENT. RT ALSO WORKING WITH PT ON IS. PT GETTING ONLY 500 CONSISTENTLY FOR RT ON IS WELL. PT CONTINUES TO RECEIVE 2ND UNIT OF PRBC. TOLERATING WELL. WILL START NS IVF ORDERED WHEN PRBC TRANSFUSION COMPLETE
[2018-10-12] VITALS (24 sets, daily range): BP systolic 98–135; BP diastolic 39–64
--- NOTE | 2018-10-12 | NUR ---
NS RESTARTED AT 75ML/HR ORDERED.
--- NOTE | 2018-10-12 03:00 | NUR ---
SHIFT REASSESSMENT COMPLETED NO SIGNIFICANT CHANGES
--- NOTE | 2018-10-12 05:00 | NUR ---
DRESSING TO SUBSTERNAL TPM AND GARETT DRAIN CHANGED. DRESSINGS TO RIGHT LEG CHANGED. ALL CHANGED PER ORDER. JOSE TO RIGHT LEG INTACT NO SIGN OF INFECTION IN ANY AREA. PT TOLERATED WELL. ALL ELECTRODES CHANGED AND REPLACED
[2018-10-12 06:34] LABS: HEMATOCRIT 27.2 % (42.0-54.0); HEMOGLOBIN 8.8 g/dL (13.5-17.5); MCH 29.2 pg (26.0-34.0); MCHC 32.4 g/dL (31.0-37.0); MEAN PLATELET VOLUME 10.3 fL (7.4-10.4); RBC 3.01 10x6/uL (4.20-6.10); RDW 14.2 % (11.5-14.5); WBC 5.9 10x3/uL (4.8-10.8)
[2018-10-12 06:52] LABS: ALBUMIN 2.6 g/dL (3.4-5.0); ANION GAP 11.4 mmol/L (8-16); BILIRUBIN - TOTAL 1.04 mg/dL (0.2-1.3); CALCIUM 8.2 mg/dL (8.5-10.1); CREATININE - SERUM 1.9 mg/dL (0.6-1.3); POTASSIUM - SERUM 4.4 mmol/L (3.5-5.1); PROTEIN - SERUM 5.7 g/dL (6.4-8.2)
[2018-10-12 07:22] LABS: MCV 90.4 fL (80.0-100.0)
--- NOTE | 2018-10-12 09:32 | NUR ---
Reviewed chart and spoke with pt Pt currently only drinking water wt: 247lb RD following
--- NOTE | 2018-10-12 09:56 | NUR ---
0700 RECIEVED PT ALERT AN DORIENTED O2 4L NC, DECREASED TO 3L NC, R IJ CVL DRESSING CDI WITH NS 75ML/HR, MIDSTERNAL DRESSING CDI SUBSTERNAL TPM WIRES AND GARETT DRAIN DRESSING CDI, 90ML SEROUS FLUID EMPTIED FROM GARETT, RLE HARVEST SITES CDI, VSS, DENIES PAIN AND ALL NEEDS 0900 AM MEDS GIVEN WITH SMALL SIPS OF WATER, PT STATES UNDERSTANDING FOR NPO STATUS, AMBULATED WITH THERAPY 0945 SPOKE WITH DELISA VASCULAR ACCESS NURSE AND AWARE OF CONSULT FOR MIDLINE, FAMILY UPDATED AND DENY QUESTIONS, WILL CONTINUE TO MONITOR
--- NOTE | 2018-10-12 11:15 | NUR ---
R IJ CVL DCD TIP INTACT PER PROTOCOL, L MIDLINE PER VASCULAR ACCESS, ROBLERO DCD TIP INTACT PER PROTOCOL
--- NOTE | 2018-10-12 17:02 | NUR ---
1300 AMBULATED WITH THERAPY 1500 REPOSITIONED IN CHAIR, ATTEMPTED TO URINATE BUT DENIES ANY NEED 1700 PRN MORPHINE FOR INCISIONAL PAIN WITH COUGHING, USES IS WITH ENCOURAGEMENT, PULLING 600-1000, SPOKE WITH DR GRISELDA RODARTE RENAL CONSULT
--- NOTE | 2018-10-12 18:13 | NUR ---
DR HAMILTON IN UNIT ORDERS FOR ROBLERO CATH INSERTION, 18FR ROBLERO INSERTED X1 ATTEMPT VIA STERILE TECHNIQUE
--- NOTE | 2018-10-12 19:30 | NUR ---
REPORT RECEIVED CARE ASSUMED. INITIAL SHIFT ASSESSMENT COMPLETED SEE FLOWSHEET. PT AAOX4 BUT FAIRLY UNENERGETIC AND WITH WEAK INEFFECTUAL EFFORT AT IS DOING ONLY 500. DISCUSSED IMPORTANCE OF DOING IS & TCDB AND PT AGREED TO TRY. EFFORTS MORE MARGINAL AFTER THAT DOING 750 MOST OF THE TIME. PT BEING MONITORED PER STANDARD CVICU PROTOCOL WITH ALL ALARMS SET, VERIFIED AND AUDIBLE AT NURSES STATION. BED IN LOW POSITION CALL LIGHT IN REACH. IVF AND IV LINES CURENT AND APPROPRIATLY LABELED
--- NOTE | 2018-10-12 21:00 | NUR ---
MEDS GIVEN DOMENTED ON OCT. PT TOLEARATED WELL. PT ENCOURAGED TO ASSIST WITH TURNING AND REPOSITIONING.
--- NOTE | 2018-10-12 21:30 | NUR ---
BATH OFFERED, REFUSEEDD. PT IS ABLE TO TURN SLEF SIDE TO SIDE AND AT THIS TIME ONLY A PILLOW PLACE BEHIND HIM TO OFFER SUPPORT IS NEEDED
--- NOTE | 2018-10-12 23:00 | NUR ---
SHIFT REASESSMENT COMPLETED SEE FLOWSHEET. NO SIGNIFICANT CHANGES NOTED
[2018-10-13] VITALS (24 sets, daily range): BP systolic 95–154; BP diastolic 41–70
--- NOTE | 2018-10-13 01:00 | NUR ---
NO SIGNIFICANT CHANGE. CONTINUE TO AWAKEN PT AND ENCOURAGE IS.
--- NOTE | 2018-10-13 03:00 | NUR ---
SHIFT REASSESSMENT COMPLETED SEE FLOWSHEET; NO ACUTE CHANGES NOTED
--- NOTE | 2018-10-13 04:30 | NUR ---
DAUGHTER HER TO VISIT. UPDATE GIVEN
--- NOTE | 2018-10-13 05:00 | NUR ---
COMPLETE BATH GIVEN WITH ALL DRESSINGS TO SUBTERNAL AND RIGHT LEG CHANGED. LINENS CHANGED. PT ASSISTED INTO CHAIR. NOTE WITH FREQUENT PROMPTING PT AMBULATED WITH STEADY GAIT AND MANEUVERED QUITE WELL. CALL LIGHT LEFT IN HAND
[2018-10-13 06:34] LABS: HEMATOCRIT 30.5 % (42.0-54.0); HEMOGLOBIN 9.8 g/dL (13.5-17.5); MCH 29.3 pg (26.0-34.0); MCHC 32.1 g/dL (31.0-37.0); MCV 91.3 fL (80.0-100.0); MEAN PLATELET VOLUME 10.2 fL (7.4-10.4); RBC 3.34 10x6/uL (4.20-6.10); RDW 14.1 % (11.5-14.5); WBC 5.2 10x3/uL (4.8-10.8)
[2018-10-13 06:46] LABS: ALBUMIN 2.5 g/dL (3.4-5.0); BILIRUBIN - TOTAL 0.64 mg/dL (0.2-1.3); CARBON DIOXIDE 25.4 mmol/L (21.0-32.0); CREATININE - SERUM 1.6 mg/dL (0.6-1.3); POTASSIUM - SERUM 4.4 mmol/L (3.5-5.1); PROTEIN - SERUM 5.6 g/dL (6.4-8.2)
--- NOTE | 2018-10-13 08:09 | NUR ---
UP IN CHAIR AT THIS TIME. NO ACUTE DISTRESS NOTED. PT DENIES ANY NEEDS. PT ALERT AND ORIENTED. WILL CONTINUE PLAN OF CARE.
--- NOTE | 2018-10-13 09:10 | MORECARE ---
CASE MANAGEMENT DISCHARGE SUMMARY PATIENT: CADE HERRON UNIT: [id number] ADM DATE: 10/08/18 AGE: 83 : 37 SEX: M ROOM/BED: D.[facility] AUTHOR: CHAD LIU PHYSICIAN: REFERRING PHYSICIAN: ANDRIA HAMILTON MD DATE OF SERVICE: 10/13/18 Discharge Plan Patient Name: CADE HERRON [facility] [facility] 1935 Planned Disposition: Home Anticipated Discharge Date: Discharge Date: Expected LOS: Initial Reviewer: [email or web address] Initial Review Date: 10/12/2018 Generated: 10/13/18 10:09 am Comments DCP- Discharge Planning Updated by [email or web address]: Carla Abdi on 10/09/18 7:[address] CM attempted to meet with patient at bedside. He is currently having NG tube placed. CM will continue to follow and assist as needed with discharge planning / needs. Last DP export: 10/09/18 7:07 pm Patient Name: CADE HERRON Page [phone] at 0910 All edits/amendments must be made on the electronic document DICTATION DATE: 10/13/18908 PROGRAM DIRECTOR CABLE TELEVISION: EVA 10/13/18908 RPT#: [id number] DC DATE: STATUS: ADM IN [facility] [address] [place] [address] END OF REPORT
--- NOTE | 2018-10-13 09:17 | MORECARE ---
CASE MANAGEMENT DISCHARGE SUMMARY PATIENT: CADE HERRON UNIT: [id number] ADM DATE: 10/08/18 AGE: 83 : 37 SEX: M ROOM/BED: D.[facility] AUTHOR: ALEXA,DOC PHYSICIAN: REFERRING PHYSICIAN: ANDRIA HAMILTON MD DATE OF SERVICE: 10/13/18 Discharge Plan Patient Name: CADE HERRON Facility: [facility]:[place] : 1935 Planned Disposition: Home Anticipated Discharge Date: Discharge Date: Expected LOS: Initial Reviewer: [email or web address] Initial Review Date: 10/12/2018 Generated: 10/13/18 10:16 am Comments DCP- Discharge Planning Updated by [email or web address]: Carla Abdi on 10/13/18 8:[address] LATE ENTRY 10/12/18 @ 1445 Patient Name: CADE HERRON Admission Status: Elective Accout number: [id number] Admission Date: 10-08-2018 : 1935 Admission Diagnosis:ATHSCL HEART DISEASE OF [place] CORONARY ARTERY W/O ANG Attending: ANDRIA HAMILTON Current LOS: 5 Anticipated DC Date: Planned Disposition: Home Primary Insurance: [employer] CHO[employer] PPO [facility] Discharge Planning Comments: CM met with patient at bedside after obtaining verbal consent. Patient states he plans on returning home after discharge with his . Patient states he will have family transport him home via private vehicle. Patient denies any discharge needs at this time. CM will continue to follow and assist as needed for discharge planning / needs. Jackscrew Worker: Carla Abdi DCP- Discharge Planning Updated by [email or web address]: Carla Abdi on 10/09/18 7:[address] CM attempted to meet with patient at bedside. He is currently having NG tube placed. CM will continue to follow and assist as needed with discharge planning / needs. DCPIA - Discharge Planning Initial Assessment Updated by [email or web address]: Carla Abdi on 10/13/18 9:12 am * Is the patient Alert and Oriented? Yes * How many steps to enter\exit or inside your home? * PCP PRAJAPATI * Pharmacy [facility] * Preadmission Environment Home with Family * ADLs Independent * Equipment CPAP * Other Equipment CANE , WALKER * List name and contact numbers for known caregivers / representatives who currently or will assist patient after discharge: ROSALINA HERRON - - [phone], * Verbal permission to speak to the caregivers and representatives has been obtained from the patient. Yes * Community resources currently utilized None * Additional services required to return to the preadmission environment? No * Can the patient safely return to the preadmission environment? Yes * Has this patient been hospitalized within the prior 30 days at any hospital? No Last DP export: 10/13/18 8:10 a Patient Name: CADE HERRON Page [id number] at 0917 All edits/amendments must be made on the electronic document DICTATION DATE: 10/13/18915 MERCHANDISING DIRECTOR: EVA 10/13/18915 RPT#: [id number] DC DATE: STATUS: ADM IN [facility] [address] [place] [address] END OF REPORT
--- NOTE | 2018-10-13 09:22 | NUR ---
INCENSITVE SPIROMETER EFFORT NOTED AT 750.
--- NOTE | 2018-10-13 10:45 | TEE ---
PATIENT:CADE HERRON MEDICAL RECORD: [id number] LOCATION:[place] [address] AGE OF PATIENT: 83 ADMISSION DATE: 10/08/18 SEX: M REFERRING PHYSICIAN: INTERPRETING PHYSICIAN: ADRIENNE MAGDALENO MD TRANSESOPHAGEAL ECHOCARDIOGRAM Date: 10/08/18 ZEKE CHARGE Y INDICATIONS: CABG PREMEDICATIONS: PATIENT'S RESPONSE PROCEDURE DOPPLER MEASUREMENTS: LVIT LA PA RA LVOT RVOT Asc. Ao AV Gradient Peak AV Mean AV Area MV Gradient Peak MV Mean MV Area INTERPRETATION: Doppler: 2-D: COLOR FLOW DOPPLER NORMAL SALINE STUDY: MISCELLANOUS: DIAGNOSIS: PLAN: Gravity Prospecting Operator:2 Dr. [place] Service Operations Manager: Naman TRUJILLO COMMENTS: DATE OF SERVICE: 10/08/2018 PROCEDURE: Transesophageal echo evaluation of valvular structures during bypass surgery. FINDINGS: 1. Left ventricular chamber size is within normal limits. Left ventricular systolic function is normal. Overall ejection fraction estimated at 55%. 2. Left atrium, right atrium, and right ventricle chamber sizes are within TRANSESOPHAGEAL ECHOCARDIOGRAM REPORT [id number] CADE HERRON normal limits. 3. Valvular structures have normal structure and motion. 4. Doppler interrogation reveals only trace mitral regurgitation, no other valvular insufficiency or stenosis. 5. No evidence of pericardial effusion or left ventricular thrombus. TRANSINT:[id number] Voice Confirmation ID: [id number] DOCUMENT ID: [id number] at 1045 CC: [id number] DICTATION DATE: 10/09/18 1027 MAINTENANCE ANALYST: 10/10/18 0037 ADM IN [place] [id number] [place] [address]
--- NOTE | 2018-10-13 11:20 | NUR ---
NO AUCTE DISTRESS NOTED AT THIS TIME. PT UP IN CHAIR BESIDE BED VISITING WITH FAMILY. DENIES ANY NEEDS. CALL LIGHT IN REACH. WILL CONTINUE PLAN OF CARE.
--- NOTE | 2018-10-13 13:38 | NUR ---
NO CHANGE. NO ACUTE DISTRESS NOTED. UP IN CHAIR. DENIES ANY NEEDS. CALL LIGHT IN REACH. WILL CONTINUE PLAN OF CARE.
[2018-10-13 13:45] LABS: CREATININE - URINE 85.1 mg/dL (30-125); PRO/CRE RATIO URINE 1.3 mg/g
[2018-10-13 13:48] LABS: APPEARANCE HAZY (CLEAR); BACTERIA FEW /hpf (NONE SEEN); BILIRUBIN NEGATIVE (NEGATIVE); COLOR YELLOW (YELLOW); EPITHELIAL CELLS OCC /hpf (0-5); GLUCOSE 100 mg/dL (NEGATIVE); GRANULAR CAST RARE /lpf (NONE SEEN); KETONE SMALL mg/dL (NEGATIVE); MUCUS <1+ /lpf (NONE SEEN); NITRITE NEGATIVE (NEGATIVE); PROTEIN 1+ mg/dL (NEGATIVE); RED CELLS - URINE >50 /hpf (0-5); UROBILINOGEN NORMAL (NORMAL); WHITE CELLS - URINE 0-5 /hpf (0-5)
[2018-10-13 13:50] LABS: HYALINE CAST RARE /lpf (NONE SEEN)
--- NOTE | 2018-10-13 14:18 | NUR ---
NOTED CONSULT FOR DR FLORES FROM [facility]. NO NOTES SEEN REGARDING CONSULT TO STATE IF PHYSICIAN HAD BEEN MADE AWARE OF CONSULT. CALLED DR MAK OFFICE AND SPOKE WITH PRADIP. NOTIFIED OF CONSULT AT THIS TIME. NO ACUTE DISTRESS NOTED. WILL CONTINUE PLAN OF CARE.
--- NOTE | 2018-10-13 16:30 | NUR ---
Rehab Note- Acute Inpatient Rehab prescreen order received. The patient has [employer] and will require a PreAuth prior to an acute inpatient rehab stay. Need an OT Eval for PreAuth, spoke with MARIJA Aguirre to obtain order. Will begin the PreAuth process. Will follow at this time. Thank you for this referral! Rosie Leroy RN CLinical Liaison, [facility] Rehab
--- NOTE | 2018-10-13 16:37 | NUR ---
INCENTIVE SPIROMETER ATTEMPT NOTED AT 1000. NO AUCTE DISTRESS NOTED. WILL CONTINUE PLAN OF CARE.
--- NOTE | 2018-10-13 18:28 | NUR ---
LARGE BOWEL MOVEMENT NOTED AT THIS TIME, LOOSE LIGHT BROWN TO TOILET. PT WALKED WITH STAND MODERATE ASSIST USING WALKER. PT UP IN BED AT THIS TIME. NO ACUTE DISTRESS NOTED. WILL CONTINUE PLAN OF CARE.
--- NOTE | 2018-10-13 19:00 | NUR ---
RESTING IN BED WITH EYES CLOSED. ROUSES EASILY TO VERBAL STIMULI. ALERT AND ORIENTED. IV FLUIDS AND TUBING DATED/TIME/LABELED AND ARE CURRENT.BED IN LOW POSITION. SR UP X2. CALL LIGHT IN REACH AND PATIENT ABLE TO UTILIZE TO VERBALIZE NEEDS. DENIES NEEDS AT THIS TIME.
--- NOTE | 2018-10-13 21:00 | NUR ---
RESTING QUITELY WITH EYES CLOSED, EASILY ROUSED TO VERBAL STIMULI. ALERT AND ORIENTED. DENIES ANY COMPLAINT AT THIS TIME. CALL LIGHT WITHIN EASY REACH. HOB UP 35 DEGREES. SR UP X2. BED IN LOW POSITION.
--- NOTE | 2018-10-13 23:00 | NUR ---
RESTING IN BED WITH EYES CLOSED. ROUSES EASILY TO VERBAL STIMULI. ALERT AND ORIENTED. SHIFT REASSESSMENT COMPLETED WITH NO CHANGES OBSERVED. BED IN LOW POS. SR UP X2. CALL LIGHT IN REACH.
[2018-10-14] VITALS (23 sets, daily range): BP systolic 105–158; BP diastolic 53–77
--- NOTE | 2018-10-14 01:00 | NUR ---
RESTING IN BED WITH EYES CLOSED, ROUSES TO VERBAL STIMULI. ALERT AND ORIENTED. CALL LIGHT IN REACH. BED IN LOW POS. SR UP X2. DENIES ANY COMPLAINTS AT THIS TIME.
--- NOTE | 2018-10-14 02:21 | NUR ---
RESTING QUIETLY IN BED WITH EYES CLOSED. ROUSES EASILY TO VERBAL STIMULI. ALERT AND ORIENTED. CALL LIGHT IN REACH. BED IN LOW POS.
--- NOTE | 2018-10-14 02:24 | NUR ---
RESTING QUIETLY IN BED WITH EYES CLOSED. EASILY ROUSED TO VERBAL STIMULI. ALERT AND ORIENTED. DENIES ANY COMPLAINT AT THIS TIME. SR UP X2. CALL LIGHT IN REACH. BED IN LOW POS.
--- NOTE | 2018-10-14 03:00 | NUR ---
COMPLETE BATH DONE WITH SUBSTERNAL AND RIGHT LEG DRESSINGS CHANGED PER ORDER. PT TOLERATED WELL. ALL LINENS CHANGED. SHIFT REASSESSMENT COMPLETED SEE FLOWSHEET
--- NOTE | 2018-10-14 04:30 | NUR ---
LEAVING UNIT VIA W/C FOR ORDERED CXR VIA W/C ACCOMPANIED BY STAFF. PT DID DO VERY WELL STANDING FOR CXR AND WITH ALL TRANSFERS. DOES NEED MUCH EMCOURAGEMENT. RETURNED TO UNIT AND WAS ASSISTED INTO RECLINER AND RECONNECTED TO MONITORS. CALL LIGHT LEFT FOR PT
--- NOTE | 2018-10-14 05:10 | NUR ---
RETURNED TO UNIT FROM RADIOLOGY. ASSISTED INTO BEDSIDE CHAIR. RECONNECTED TO MONITOR WITH ALARMS SET. CALL LIGHT WITH IN REACH.
[2018-10-14 07:24] LABS: URIC ACID 8.3 mg/dL (2.6-7.2)
[2018-10-14 07:52] LABS: ERYTHROCYTE SEDIMENTATION RATE 60 mm/hr (0-20)
--- NOTE | 2018-10-14 09:37 | NUR ---
0700 PT RECIEVED UP IN CHAIR ALERT AN DORIENTED O2 2L NC, VSS, DENIES ALL NEEDS, MIDSTERNAL AN DSUBSTERNAL DRESSING CDI WITH SUBSTERNAL GARETT COMPRESSED, TPM WIRES COILED TO CHEST, L MIDLINE DRESSING CDI WITH NS 30ML/HR, ROBLERO CATHETER DRAINING YELLOW URINE, RLE HARVEST SITE DRESSINGS CDI 0800 PRN MORPHINE FOR PAIN, SEE EMAR, PULLING 750-1000 ON IS NEEDS MUCH ENCOURAGEMENT AND GIVES POOR EFFORT, IMPORTANCE EXPLAINED AND PT STATES UNDERSTANDING 0900 AMBULATED WITH THERAPY
--- NOTE | 2018-10-14 10:15 | NUR ---
Nutrition Follow Up: Chart reviewed. Diet has been advanced to clear liquid today per surgery. Bowel function has returned and pt with no c/o N/V. Wt stable BM: 10/13/18 I>O Labs reviewed Meds noted including Reglan Rec continue advancing diet as tolerated. RD following.
[2018-10-14 10:40] LABS: BASOPHILS 0.2 % (0-2); EOSINOPHILS 3.1 % (0-7); HEMATOCRIT 31.8 % (42.0-54.0); HEMOGLOBIN 10.3 g/dL (13.5-17.5); IMMATURE GRANULOCYTES 0.6 % (0-5); LYMPHOCYTES 10.6 % (15-50); MCH 29.3 pg (26.0-34.0); MCHC 32.4 g/dL (31.0-37.0); MCV 90.6 fL (80.0-100.0); MONOCYTES 12.3 % (2-11); NEUTROPHILS 73.2 % (40-80); RBC 3.51 10x6/uL (4.20-6.10); RDW 13.7 % (11.5-14.5); WBC 4.8 10x3/uL (4.8-10.8)
--- NOTE | 2018-10-14 10:43 | NUR ---
Rehab Note- Faxed clinicals to [facility] for review for possible inpatient acute rehab stay. Will continue to follow, Thank you for this referral! Rosie Leroy RN Clinical Liaison, [facility]
[2018-10-14 10:45] LABS: PLATELET COUNT 155 10x3/uL (130-400)
[2018-10-14 10:48] LABS: ALBUMIN 2.3 g/dL (3.4-5.0); ANION GAP 16.5 mmol/L (8-16); BILIRUBIN - TOTAL 0.68 mg/dL (0.2-1.3); CALCIUM 8.4 mg/dL (8.5-10.1); CARBON DIOXIDE 23.9 mmol/L (21.0-32.0); CREATININE - SERUM 1.3 mg/dL (0.6-1.3); MAGNESIUM - SERUM 2.1 mg/dL (1.8-2.4); POTASSIUM - SERUM 4.4 mmol/L (3.5-5.1)
--- NOTE | 2018-10-14 14:10 | NUR ---
1100 AMBULATED WITH PT, ASSISTED TO BR AND HAD BM 1300 ATE 100% CLEAR LIQUID TRAY, TOLERATED WELL
--- NOTE | 2018-10-14 17:18 | NUR ---
1500 PT REPOSITIONED IN CHAIR, DENIES ALL NEEDS 1600 I&OS DONE 1700 ATE 100%DINNER
--- NOTE | 2018-10-14 18:40 | NUR ---
PT ASSISTED BACK TO BED, PRN MEDICATION FOR INCISIONAL PAIN GIVEN
--- NOTE | 2018-10-14 19:00 | NUR ---
RESTING QUIETLY IN BED WITH EYES CLOSED. EASILY ROUSED BY VERBAL STIMULI. ALERT AND ORIENTED. DENIES PAIN AT PRESENT. SHIFT ASSESSMENT DONE, NO DISTRESS OBSERVED. SR UPX2. BED IN LOW POSITION. CALL LIGHT IN REACH, AND ABLE TO UTILIZE TO MAKE NEEDS KNOWN,
--- NOTE | 2018-10-14 19:30 | NUR ---
PT IS BEING MONITORED PER STANDARD CVICU PROTOCOL WITH ALL ALARMS SET, VERIFIED AND AUDIBLE AT NURSES STATION. DRESSINGS TO MIDSTERNAL INCISION CDI. DRESSING TO SUBSTERNAL COVERING DC'D CT SITES, INSERTION SITES OF PACEMAKER WIRES X 2 AND INSERTION SITE OF CURRENT GARETT DRAIN CDI. GARETT DRAIN COMPRESSED WITH SEROUS DRAINAGE PROTECTED IN KARGAROO BAG. DRESSINGS TO RIGHT LEG HARVEST SITES X 8 ARE CDI. PT ENCOURAGED TO DO IS BUT HAVE WEAK EFFORT AND REQUIRES MUCH ENCOURAGEMENT. DOES PULL FROM 500-800 BUT NOT DOING HIS IS INDEPENDENTLY. CONTINUE TO REMIND, ENCOUARAGE AND OFFER SUPPORT. BED IN LOW POSITION CALL LIGHT IN REACH PATIENT ABLE TO USE CALL LIGHT TO REQUEST ASSISTANCE. VSS AT THIS TIME REMAINS NSR
--- NOTE | 2018-10-14 21:00 | NUR ---
RESTING QUIETLY IN BED WITH EYES CLOSED. EASILY ROUSED TO VERBAL STIMULI. ALERT AND ORIENTED. SR UP X2. CALL LIGHT IN REACH. BED IN LOW POSITION. DENIES PAIN. NO DISTRESS OBSERVED.
--- NOTE | 2018-10-14 22:17 | NUR ---
PATIENT O2 SAT DOWN TO 89% PLACED ON O2L/MIN PER NC. 02 SAT UP TO 99% AT THIS TIME.
--- NOTE | 2018-10-14 23:00 | NUR ---
RESTING IN BED WITH EYES CLOSED. EASILY ROUSED AND ALERT. DENIES PAIN. NO CHANGE SINCE PREVIOUS ASSESSMENT. CALL LIGHT IN REACH. SR UP X2.
[2018-10-15] VITALS (25 sets, daily range): BP systolic 111–135; BP diastolic 49–64
--- NOTE | 2018-10-15 01:00 | NUR ---
RESTING WITH EYES CLOSED. EASILY ROUSED AND ALERT. DENIES PAIN AT PRESENT. SR UP X2. CALL LIGHT IN REACH.
--- NOTE | 2018-10-15 03:00 | NUR ---
RESTING IN BED WITH EYES CLOSED, EASILY ROUSED AND ALERT. SHIFT REASSESSMENT DONE, NO CHANGES OBSERVED. DENIES PAIN. CALL LIGHT IN REACH
--- NOTE | 2018-10-15 04:20 | NUR ---
OUT TO RADIOLOGY FOR CHEST XRAY VIA WC. ACCOMPANIED BY THIS RN
--- NOTE | 2018-10-15 04:50 | NUR ---
RETURNED TO ROOM CV03. ASSISTED TO TOILET WITH USE OF WALKER. GAIT SLOW AND STEADY WITH ASSIST X1. CALL LIGHT IN REACH.
--- NOTE | 2018-10-15 05:00 | NUR ---
ASSISTED TO CHAIR AT BEDSIDE WITH USE OF WALKER. TOLERATED AMBULATION/TOILETING WITHOUT DIFF. DRSGS CHANGED. DENIES PAIN AT PRESENT. CALL LIGHT IN REACH. MONITORS POSITONED ON PT AND ALARMS TURNED ON
--- NOTE | 2018-10-15 07:50 | NUR ---
SHIFT REPORT RECEIVED. AA&0X4. DENIES PAIN AT THIS TIME. HAS MIDLINE INCISION WITH DRESSING INTACT. SUBSTERNAL DRESSING CDI WITH PACER WIRES IN PLACE. L GARETT DRAIN IN PLACE. R-LEG HARVEST SITES WITH DRESSING CDI. MICHELLE HOSE IN PLACE. HAS JACKIE MIDLINE SL. IS EXERCISES 1000. UP IN CHAIR. SHIFT ASSESSMENT COMPLETED. WILL CONTINUE TO MONITOR.
--- NOTE | 2018-10-15 09:30 | NUR ---
AMBULATED WITH PHYSICAL THERAPY.
--- NOTE | 2018-10-15 11:15 | NUR ---
OT NOTE: PT PERFORMED WELL TODAY. REPORTED THAT HE FELT POORLY BUT DID VERY WELL; BED MOB WITH MOD ASSIST FOR SIT TO SUPINE; MOD ASSIST FOR SIT TO STAND AND MIN ASSIST FOR TRANSFERS. IN ROOM AMBULATION WITH MIN ASSIST. AMB THROUGHOUT HALLWAY WITH MIN ASSIST. MIN ASSIST FOR UE DRESSING; MOD ASSIST FOR LE DRESSING ; SET UP FOR GROOMING AND FEEDING. PT VERY GOOD REHAB CANDIDATE. Nick MEDINA TR/L
--- NOTE | 2018-10-15 11:15 | NUR ---
Rehab Note- Received a call from [facility], stated that their medical services coordinator has priliminary denied the patient an Inpatient Acute Rehab stay. A peer to peer can be set up by calling [phone] by Oct 20 at 1300. Spoke with MARIJA Aguirre. Thank you for this referral! Rosie Leroy RN CLinical Liaison, [facility] Rehab
--- NOTE | 2018-10-15 11:30 | NUR ---
RE-ASSESMENT COMPLETED. RESTING COMFORTABLY IN BED. BEST IS EFFORT BETWEEN [id number]. REPORTS MINOR DISCOMFORT AT PREVIOUS GARETT DRAIN SITE. NO FURTHER NEEDS. WILL CONTINUE TO MONITOR.
--- NOTE | 2018-10-15 13:30 | NUR ---
ASSITED PT TO CHAIR. TOLERATED WELL. USED WALKER. NO FURTHER NEEDS AT THIS TIME. WILL CONTINUE TO MONITOR.
--- NOTE | 2018-10-15 15:00 | NUR ---
RE-ASSESSMENT COMPLETED. RESTING COMFORTABLY IN CHAIR. NO ACUTE CHANGES FROM PREVIOUS ASSESSMENT. CURRENT ORAL TEMP 99.3. NO FURTHER NEEDS. WILL CONTINUE TO MONITOR.
--- NOTE | 2018-10-15 16:21 | MORECARE ---
CASE MANAGEMENT DISCHARGE SUMMARY PATIENT: CADE HERRON UNIT: [id number] ADM DATE: 10/08/18 AGE: 83 : 37 SEX: M ROOM/BED: D.[facility] AUTHOR: ALEXA,DOC PHYSICIAN: REFERRING PHYSICIAN: ANDRIA HAMILTON MD DATE OF SERVICE: 10/15/18 Discharge Plan Patient Name: CADE HERRON Facility: [facility]:[place] : 1935 Planned Disposition: Home Anticipated Discharge Date: Discharge Date: Expected LOS: Initial Reviewer: [email or web address] Initial Review Date: 10/12/2018 Generated: 10/15/18 5:21 pm Comments DCP- Discharge Planning Updated by [email or web address]: Carla Abdi on 10/15/18 3:[address] CM received notification that patient insurance has denied Inpatient Rehab. CM spoke with Tika Hamilton's nurse regarding denial and that Dr. Hamilton could do P2P [phone] for appeal. CM spoke to Dr. Hamilton and denied doing a P2P @ this time. CM contacted patient's Terri and explained denial. She stated that she would contact Rui and see what she could get done. CM has explained to both Dr. Hamilton and patient and his spouse (Terri) that Human stated that patient has been approved for SNF Rehab. CM will continue to follow and assist as needed with discharge planning/ needs. 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 Patient states he plans on returning home after discharge with his . Patient states he will have family transport him home via private vehicle. Patient denies any discharge needs at this time. CM will continue to follow and assist as needed for discharge planning / needs. Forestry Foreman: Carla Abdi DCP- Discharge Planning Updated by [email or web address]: Carla Abdi on 10/09/18 7:[address] CM attempted to meet with patient at bedside. He is currently having NG tube placed. CM will continue to follow and assist as needed with discharge planning / needs. DCPIA - Discharge Planning Initial Assessment Updated by [email or web address]: Carla Abdi on 10/13/18 9:12 am * Is the patient Alert and Oriented? Yes * How many steps to enter\exit or inside your home? * PCP PRAJAPATI * Pharmacy [facility] * Preadmission Environment Home with Family * ADLs Independent * Equipment CPAP * Other Equipment CANE , WALKER * List name and contact numbers for known caregivers / representatives who currently or will assist patient after discharge: TERRI HERRON - - [phone], * Verbal permission to speak to the caregivers and representatives has been obtained from the patient. Yes * Community resources currently utilized None * Additional services required to return to the preadmission environment? No * Can the patient safely return to the preadmission environment? Yes * Has this patient been hospitalized within the prior 30 days at any hospital? No Last DP export: 10/13/18 8:16 a Patient Name: CADE HERRON Page [phone] at 1621 All edits/amendments must be made on the electronic document DICTATION DATE: 10/15/181620 CUSTOMER LEADER: EVA 10/15/181620 RPT#: [id number] DC DATE: STATUS: ADM IN [facility] [address] [place] [address] END OF REPORT
--- NOTE | 2018-10-15 16:30 | NUR ---
BLOOD GLUCOSE 176. 2 UNITS OF HUMULIN REG GIVEN PER SLIDING SCALE ON JACKIE. PT RESTING COMFORTABLY IN CHAIR. FAMILY AT BEDSIDE. NO FURTHER NEEDS. WILL CONTINUE TO MONITOR.
[2018-10-15 17:10] LABS: SPE - ALBUMIN 2.7 g/dL (2.9-4.4); SPE - ALPHA-1 GLOBULIN 0.4 g/dL (0.0-0.4); SPE - ALPHA-2 GLOBULIN 0.9 g/dL (0.4-1.0); SPE - BETA GLOBULIN 0.8 g/dL (0.7-1.3); SPE - GAMMA GLOBULIN 0.6 g/dL (0.4-1.8); SPE - M-SPIKE Not Observed g/dL (Not Observed); SPE - TOTAL PROTEIN 5.5 g/dL (6.0-8.5)
--- NOTE | 2018-10-15 19:00 | NUR ---
REPORT RECEIVED AND ASSESSMENT COMPLETED. EE FLOWSHEET FOR FULL DETAILS.
--- NOTE | 2018-10-15 21:00 | NUR ---
2100 MEDS GIVEN. PT ASSISTED TO BED. WILL MONITOR
--- NOTE | 2018-10-15 23:01 | NUR ---
REASSESSMENT COMPLETED SEE FLOWSHEET
[2018-10-16] VITALS (24 sets, daily range): BP systolic 92–146; BP diastolic 45–86
[2018-10-16 04:36] LABS: BASOPHILS 0.4 % (0-2); EOSINOPHILS 4.4 % (0-7); HEMATOCRIT 32.8 % (42.0-54.0); HEMOGLOBIN 10.7 g/dL (13.5-17.5); IMMATURE GRANULOCYTES 0.8 % (0-5); LYMPHOCYTES 17.1 % (15-50); MCH 29.2 pg (26.0-34.0); MCHC 32.6 g/dL (31.0-37.0); MCV 89.4 fL (80.0-100.0); MEAN PLATELET VOLUME 9.9 fL (7.4-10.4); MONOCYTES 12.7 % (2-11); NEUTROPHILS 64.6 % (40-80); PLATELET COUNT 148 10x3/uL (130-400); RBC 3.67 10x6/uL (4.20-6.10); RDW 13.2 % (11.5-14.5); WBC 5.3 10x3/uL (4.8-10.8)
[2018-10-16 04:56] LABS: ALBUMIN 2.3 g/dL (3.4-5.0); ANION GAP 10.4 mmol/L (8-16); BILIRUBIN - TOTAL 0.64 mg/dL (0.2-1.3); CALCIUM 8.4 mg/dL (8.5-10.1); CARBON DIOXIDE 29.8 mmol/L (21.0-32.0); CREATININE - SERUM 1.3 mg/dL (0.6-1.3); POTASSIUM - SERUM 4.2 mmol/L (3.5-5.1); PROTEIN - SERUM 5.8 g/dL (6.4-8.2)
--- NOTE | 2018-10-16 07:30 | NUR ---
SHIFT REPORT RECEIVED. PT UP IN CHAIR AT THIS TIME. REPORTS PAIN ON HIS LLE 03/10. PAIN MEDICINE RECENTLY GIVEN BY SPIN TANK TENDER NURSE. MIDLINE INCISION SANDRA. NO SIGNS OF INFECTION NOTED. EDGES WELL APPROXIMATED. SUBSTERNAL DRESSING NOTED, CDI. HAS JACKIE MIDLINE SALINE LOCK. R-LEG HARVEST SITES COVERED WITH DRESSING. DRESSING CDI. ROBLERO IN PLACE WITH QIAN URINE NOTED. ON ROOM AIR. SHIFT ASSESSMENT COMPLETED. WILL CONTINUE TO MONITOR.
--- NOTE | 2018-10-16 09:23 | NUR ---
SPOKE WITH BARRY SALVADOR TO SEE IF DIET COULD BE INCREASED. INCREASED TO DIABETIC DIET.
--- NOTE | 2018-10-16 10:05 | NUR ---
Nutrition Follow Up: Chart reviewed. Diet just advanced to ADA. BM: 10/13/18 I<O Wt loss noted - likely r/t fluid Labs reviewed Meds noted including Lasix Rec continue current diet as tolerated. Will honor food preferences. RD following.
--- NOTE | 2018-10-16 13:28 | NUR ---
AMBULATED TO RESTROOM WITH MINIMAL ASSIST. USES WALKER. MODERATE AMOUNT OF LIGHT BROWN STOOL NOTED AT THIS TIME. AMBULATED BACK TO CHAIR. PT STATES THAT HE STILL FEEL VERY WEAK. SPOUSE AT BEDSIDE. WILL CONTINUE TO MONITOR.
--- NOTE | 2018-10-16 13:34 | NUR ---
OT NOTE: PERFORMED SIT TO STAND WITH MIN ASSIST; REPORTED FEELING LIGHT HEADED; 02 SATS 91%..ABLE TO PEPPER GOWN WITH SET UP; UNABLE TO ATTEMPT MICHELLE HOSE; TRANSFERS WITH MIN ASSIST; IN ROOM AMBULATION WITH WALKER AND MIN ASSIST SHERMAN CHAPMAN, OTR/L
--- NOTE | 2018-10-16 14:20 | MORECARE ---
CASE MANAGEMENT DISCHARGE SUMMARY PATIENT: CADE HERRON UNIT: [id number] ADM DATE: 10/08/18 AGE: 83 : 37 SEX: M ROOM/BED: D[facility] AUTHOR: ALEXA,DOC PHYSICIAN: REFERRING PHYSICIAN: ANDRIA HAMILTON MD DATE OF SERVICE: 10/16/18 Discharge Plan Patient Name: CADE HERRON Facility: [facility]:[place] : 1935 Planned Disposition: Home Anticipated Discharge Date: Discharge Date: Expected LOS: Initial Reviewer: [email or web address] Initial Review Date: 10/12/2018 Generated: 10/16/18 3:20 pm Comments DCP- Discharge Planning Updated by [email or web address]: Carla Abdi on 10/15/18 3:[address] CM received notification that patient insurance has denied Inpatient Rehab. CM spoke with Tika Hamilton's nurse regarding denial and that Dr. Hamilton could do P2P [phone] for appeal. CM spoke to Dr. Hamilton and denied doing a P2P @ this time. CM contacted patient's Terri and explained denial. She stated that she would contact Rui and see what she could get done. CM has explained to both Dr. Hamilton and patient and his spouse (Terri) that Human stated that patient has been approved for SNF Rehab. CM will continue to follow and assist as needed with discharge planning/ needs. 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 Patient states he plans on returning home after discharge with his . Patient states he will have family transport him home via private vehicle. Patient denies any discharge needs at this time. CM will continue to follow and assist as needed for discharge planning / needs. Certified Medical Technician Assistant: Carla Gutiérrezr DCP- Discharge Planning Updated by [email or web address]: Carla Abdi on 10/09/18 7:[address] CM attempted to meet with patient at bedside. He is currently having NG tube placed. CM will continue to follow and assist as needed with discharge planning / needs. DCPIA - Discharge Planning Initial Assessment Updated by [email or web address]: Carla Abdi on 10/13/18 9:12 am * Is the patient Alert and Oriented? Yes * How many steps to enter\exit or inside your home? * PCP PRAJAPATI * [facility] * Preadmission Environment Home with Family * ADLs Independent * Equipment CPAP * Other Equipment CANE , WALKER * List name and contact numbers for known caregivers / representatives who currently or will assist patient after discharge: TERRI HERRON - - [phone], * Verbal permission to speak to the caregivers and representatives has been obtained from the patient. Yes * Community resources currently utilized None * Additional services required to return to the preadmission environment? No * Can the patient safely return to the preadmission environment? Yes * Has this patient been hospitalized within the prior 30 days at any hospital? No External Providers External Provider: [facility] Next Contact Date: Service Request Date: Service Type: Resolution: Reviewer: Comments: Last DP export: 10/15/18 3:21 p Patient Name: CADE HERRON Page [phone] at 1420 All edits/amendments must be made on the electronic document DICTATION DATE: 10/16/18 1420 POULTRY PICKER: EVA 10/16/18 1420 RPT#: [id number] DC DATE: STATUS: ADM IN [facility] [address] [place] [address] END OF REPORT
--- NOTE | 2018-10-16 14:27 | NUR ---
PT CONTINUES TO COMPLAIN OF PAIN ON HIS L- THIGH. IS CONCERN THAT IT MIGHT BE A DVT. AREA PALPATED. NO WARM NOTED. PT DOES NOT REPORT PAIN WHEN PRESSING DOWN ON LEG. BARRY SALVADOR NOTIFIED. SHE WILL CHECK WITH DR. HAMILTON AND WILL GET BACK TO ME.
--- NOTE | 2018-10-16 14:48 | MORECARE ---
CASE MANAGEMENT DISCHARGE SUMMARY PATIENT: CADE HERRON UNIT: [id number] ADM DATE: 10/08/18 AGE: 83 : 37 SEX: M ROOM/BED: D.03 AUTHOR: ALEXA,DOC PHYSICIAN: REFERRING PHYSICIAN: ANDRIA HAMILTON MD DATE OF SERVICE: 10/16/18 Discharge Plan Patient Name: CADE HERRON Facility: [facility]:[place] : 1935 Planned Disposition: Home Anticipated Discharge Date: Discharge Date: Expected LOS: Initial Reviewer: [email or web address] Initial Review Date: 10/12/2018 Generated: 10/16/18 3:47 pm Comments DCP- Discharge Planning Updated by [email or web address]: Carla Abdi on 10/16/18 1:[address] CM spoke with Dr. Santos and Dr. Burt to see if I could set up P2P for Inpatient Rehab. Dr. Santos stated that if [employer] is saying SNF rehab then they will not overturn denial. Patient and spouse discussed options and signed CASIE for [facility] . CM contacted Addie @ [facility] and faxed [phone] over records. CM awaiting approval decision. CM will continue to follow and assist as needed with discharge planning / needs. DCP- Discharge Planning Updated by [email or web address]: Carla Abdi on 10/15/18 3:[address] CM received notification that patient insurance has denied Inpatient Rehab. CM spoke with Tika Hamilton's nurse regarding denial and that Dr. Hamilton could do P2P [phone] for appeal. CM spoke to Dr. Hamilton and denied doing a P2P @ this time. CM contacted patient's Terri and explained denial. She stated that she would contact Rui and see what she could get done. MARIJA has explained to both Dr. Hamilton and patient and his spouse (Terri) that Rui stated that patient has been approved for SNF Rehab. CM will continue to follow and assist as needed with discharge planning/ needs. 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 Patient states he plans on returning home after discharge with his . Patient states he will have family transport him home via private vehicle. Patient denies any discharge needs at this time. CM will continue to follow and assist as needed for discharge planning / needs. College Basketball Coach: Carla Abdi DCP- Discharge Planning Updated by [email or web address]: Carla Abdi on 10/09/18 7:[address] CM attempted to meet with patient at bedside. He is currently having NG tube placed. CM will continue to follow and assist as needed with discharge planning / needs. DCPIA - Discharge Planning Initial Assessment Updated by [email or web address]: Carla Abdi on 10/13/18 9:12 am * Is the patient Alert and Oriented? Yes * How many steps to enter\exit or inside your home? * PCP ALO * [facility]acy [facility] * Preadmission Environment Home with Family * ADLs Independent * Equipment CPAP * Other Equipment CANE , WALKER * List name and contact numbers for known caregivers / representatives who currently or will assist patient after discharge: TERRI HERRON - - [phone], * Verbal permission to speak to the caregivers and representatives has been obtained from the patient. Yes * Community resources currently utilized None * Additional services required to return to the preadmission environment? No * Can the patient safely return to the preadmission environment? Yes * Has this patient been hospitalized within the prior 30 days at any hospital? No Last DP export: 10/16/18 1:20 p Patient Name: CADE HERRON Page [phone] at 1448 All edits/amendments must be made on the electronic document DICTATION DATE: 10/16/18 1447 INTERVENTION TEACHER: DM 10/16/181446 RPT#: [id number] DC DATE: STATUS: ADM IN [facility] [address] [place] [address] END OF REPORT
--- NOTE | 2018-10-16 14:54 | NUR ---
PERCOCET TABLE GIVEN AT THIS TIME FOR PAIN 6/10 ON LEFT THIGH. SITTING IN CHAIR. WILL CONTINUE TO MONITOR.
--- NOTE | 2018-10-16 15:37 | NUR ---
PT BACK IN BED. VENOUS DOPPLER STUDY IN PROGRESS AT THIS TIME.
--- NOTE | 2018-10-16 18:22 | NUR ---
PT BACK IN BED WITH MINIMAL ASSISTANCE. RLE DRESSING CHANGED PER ORDERS. MICHELLE'S ON BILAT LOWER EXTREMITIES. PARTIAL LINEN CHANGE PROVIDED. ROBLERO CARE PROVIDED. NO FURTHER NEEDS. WILL CONTINUE TO MONITOR.
--- NOTE | 2018-10-16 19:04 | NUR ---
REPORT RECEIVED FROM OLVIN SALVADOR. INITIAL ASSESSMENT COMPLETED, SEE FLOWSHEET. PT IS RESTING IN BED WITH EYES OPEN AT THIS TIME. PT STATES HE FEELS GOOD AT THE MOMENT. NO SIGNS OF ACUTE DISTRESS. WILL CONTINUE TO MONITOR CLOSELY.
--- NOTE | 2018-10-16 21:04 | NUR ---
PT RESTING IN BED WITH EYES CLOSED AT THIS TIME. NO NEEDS VOICED. NO SIGNS OF ACUTE DISTRESS. WILL CONTINUE TO MONITOR.
--- NOTE | 2018-10-16 23:05 | NUR ---
REASSESSMENT COMPLETED, SEE FLOWSHEET. PT IS RESTING IN BED WITH EYES CLOSED. NO SIGNS OF ACUTE DISTRESS. WILL CONTINUE TO MONITOR.
[2018-10-17] VITALS (23 sets, daily range): BP systolic 91–143; BP diastolic 38–69
--- NOTE | 2018-10-17 01:05 | NUR ---
PT IS RESTING IN BED WITH EYES CLOSED. NO NEEDS VOICED. NO SIGNS OF ACUTE DISTRESS. WILL CONTINUE TO MONITOR.
--- NOTE | 2018-10-17 03:02 | NUR ---
REASSESSMENT COMPLETED, SEE FLOWSHEET. PT GAVE SELF A BED BATH. COMPLETE LINEN CHANGE DONE. NO FURTHER NEEDS VOICED. NO SIGNS OF ACUTE DISTRESS. WILL CONTINUE TO MONITOR.
--- NOTE | 2018-10-17 05:02 | NUR ---
PT IS UP IN CHAIR READING THE NEWSPAPER. DRESSINGS HAVE BEEN CHANGED. PT DENIES NEEDS AT THIS TIME. NO SIGNS OF ACUTE DISTRESS. WILL CONTINUE TO MONITOR.
--- NOTE | 2018-10-17 06:23 | NUR ---
IRREGULAR RHYTHM ON MONITOR. PT IN CHAIR SLEEPING. HEMO STABLE. NO SIGNS OF ACUTE DISTRESS NOTED. WILL CONTINUE TO MONITOR.
[2018-10-17 06:34] LABS: BASOPHILS 0.3 % (0-2); EOSINOPHILS 3.7 % (0-7); HEMOGLOBIN 11.3 g/dL (13.5-17.5); IMMATURE GRANULOCYTES 1.2 % (0-5); LYMPHOCYTES 13.5 % (15-50); MCH 29.7 pg (26.0-34.0); MCHC 33.2 g/dL (31.0-37.0); MCV 89.5 fL (80.0-100.0); MEAN PLATELET VOLUME 9.8 fL (7.4-10.4); MONOCYTES 12.6 % (2-11); NEUTROPHILS 68.7 % (40-80); PLATELET COUNT 165 10x3/uL (130-400); RDW 13.4 % (11.5-14.5); WBC 5.9 10x3/uL (4.8-10.8)
[2018-10-17 06:49] LABS: ALBUMIN 2.6 g/dL (3.4-5.0); BILIRUBIN - TOTAL 0.61 mg/dL (0.2-1.3); CALCIUM 8.4 mg/dL (8.5-10.1); CARBON DIOXIDE 27.6 mmol/L (21.0-32.0); CREATININE - SERUM 1.6 mg/dL (0.6-1.3); MAGNESIUM - SERUM 1.7 mg/dL (1.8-2.4); POTASSIUM - SERUM 4.6 mmol/L (3.5-5.1); PROTEIN - SERUM 6.5 g/dL (6.4-8.2)
--- NOTE | 2018-10-17 10:05 | NUR ---
0715-RECIEVED PER FLOW SHEET-AWAKE AND ALERT-UP IN CHAIR-RELUCTANT TO AMBULATE STATES L UPPER THIGH PAINFUL-10"-ENCOURAGED TO CONTINUE MUCH AMBULATION POSSIBLE 0850-PERCOCET TABLET GIVEN-PHYSICAL THERAPY AT [facility]-AMBULATED WITH PT 0930- AT BEDSIDE
--- NOTE | 2018-10-17 14:30 | NUR ---
OT NOTE: LATE ENTRY DOS 10/16/18 PT COMPLETED BUE AROM EXS NOT TO EXCEED 90 DEGREES OF UE FLEXION. PT COMPLETED SITTING BALANCE WITH SBA. PT COMPLETED SIT TO STAND WITH CGA. THANK YOU, TAMMI PASTOR
--- NOTE | 2018-10-17 18:33 | NUR ---
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
--- NOTE | 2018-10-17 19:35 | NUR ---
OT NOTE: PT COMPLETED SITTING BALANCE AND SIT TO STAND WITH CGA. PT COMPLETED HYGIENE TASK WITH SET UP. THANK YOU, TAMMI PASTOR
--- NOTE | 2018-10-17 19:37 | NUR ---
1900 REPORT RECIEVED, SHIFT ASSESSMENT COMPLETE, PLEASE SEE FLOW SHEETS FOR DETAILS. DENIES NEEDS. VSS. ASSUMING CARE, WILL CONTINUE PLAN OF CARE.
--- NOTE | 2018-10-17 21:09 | NUR ---
2100 TOLERATED PO WELL. DENIES PAIN/NEEDS. WILL CONTINUE PLAN OF CARE.
--- NOTE | 2018-10-17 22:43 | NUR ---
REASSESSMENT COMPLETE, PLEASE SEE FLOW SHEETS FOR DETAILS. NO ACUTE CHANGES FROM PREVIOUS ASSESSMENT TO NOTE. DENIES NEEDS. VSS. WILL CONTINUE PLAN OF CARE.
[2018-10-18] VITALS (24 sets, daily range): BP systolic 95–134; BP diastolic 41–65
--- NOTE | 2018-10-18 00:45 | NUR ---
SLEEPING, VSS, BED LOW AND LOCKED, CALL LIGHT IN REACH. WILL CONTINUE PLAN OF CARE.
--- NOTE | 2018-10-18 02:45 | NUR ---
REASSESSMENT COMPLETE, PLEASE SEE FLOW SHEETS FOR DETAILS. NO ACUTE CHANGES FROM PREVIOUS ASSESSMENT TO NOTE. VSS. WILL CONTINUE PLAN OF CARE.
[2018-10-18 05:56] LABS: CALCIUM 8.4 mg/dL (8.5-10.1); CARBON DIOXIDE 26.7 mmol/L (21.0-32.0); CREATININE - SERUM 1.6 mg/dL (0.6-1.3); MAGNESIUM - SERUM 1.8 mg/dL (1.8-2.4); POTASSIUM - SERUM 4.7 mmol/L (3.5-5.1)
--- NOTE | 2018-10-18 15:25 | NUR ---
0730-RECIVED IN BED AND ASSISTED TO CHAIR-NOTED PUT LITTLE TO NO WEIGHT ON R FOOT-STATED EXCRUCIATING-TO BEAR WEIGHT-WALKER USED 0930-UP IN CHAIR 1050-DR CEJA AT BEDSIDE 1330-DR HAMILTON AT BEDSIDE AND SPOKE WITH PT AND REGARDING MEDICATION TREATMENT FOR GOUT AND POSSIBLE INTERACTION WITH CARDIAC SURGERY
--- NOTE | 2018-10-18 16:20 | NUR ---
1600-RESTING QUIETLY IN BED-SR ON MONITOR
--- NOTE | 2018-10-18 17:30 | NUR ---
UP TO CHAIR FOR MEAL WITH ASSIST.
--- NOTE | 2018-10-18 19:30 | NUR ---
REC'D TO CARE, SALES PROMOTION OFFICER PER FLOWSHEET, PT AWAKENS TO NAME, VSS. NO SIGN OF DISTRESS. SKIN/INCISIONS NOTED. PT DENIES PAIN OR NEEDS. ALARMS ON AND C/L IN REACH.
--- NOTE | 2018-10-18 20:55 | NUR ---
ADMIN PO MEDS PER MD ORDER.
--- NOTE | 2018-10-18 21:30 | NUR ---
NO VISITORS, PT RESTING WITH EYES CLOSED, VSS.
--- NOTE | 2018-10-18 23:10 | NUR ---
REASSESSMENT PER FLOWSHEET, NO ACUTE CHANGES. RT AT BS FOR RESP TX. I.S. 1000. VSS PT DENIES NEEDS.
[2018-10-19] VITALS (18 sets, daily range): BP systolic 109–158; BP diastolic 43–66
--- NOTE | 2018-10-19 01:00 | NUR ---
PT AWAKENS EASILY. I.S. DONE. VSS. C/L IN REACH. PT BACK TO REST EASILY.
--- NOTE | 2018-10-19 03:21 | NUR ---
REASSESSMENT PER FLOWSHEET, NO ACUTE CHANGES. VSS. GIVEN FRESH WATER, DENIES NEEDS.
--- NOTE | 2018-10-19 06:00 | NUR ---
PT UP IN CHAIR. MINIMAL ASSIST, C/O "SORE BOTTOM". BLANCHABLE REDNESS NOTED. VSS.
--- NOTE | 2018-10-19 09:30 | NUR ---
PT UP TO TOILET. USE OF WALKER. HAD BOWEL MOVEMENT.
--- NOTE | 2018-10-19 10:19 | NUR ---
OT NOTE: PT PERFORMED WELL. REPORTING INCREASED PAIN IN L GREAT TOE. ABLE TO AMB WITH RW AND MIN ASSIST; TRANSFERRED TO TOILET WITH MIN ASSIST AND USE OF GRAB BAR; HYGIENE WITH MOD ASSIST; REQUIRED MAX ASSIST TO PEPPER SOCK BUT MIN ASSIST TO PEPPER/DOFF GOWN. SHERMAN CHAPMAN, OTR/L
--- NOTE | 2018-10-19 10:55 | NUR ---
DR HAMILTON NURSE AT BEDSIDE REMOVING LEG JOSE.
--- NOTE | 2018-10-19 13:01 | NUR ---
pt assisted up to toilet. pinto also unclamped at this time. allowed to drain and rest, then reclamped. pt returned to bed to have remaining adrian removed. visitor at bedside.
[2018-10-19] MEDS ORDERED: LOPRESSOR25 MG PO (15:12)
[2018-10-19] MEDS ORDERED: COLACE100 MG PO (15:15)
--- NOTE | 2018-10-19 15:15 | NUR ---
ROBLERO CATHETER REMOVED, TIP INTACT. NO DIFFICULTY.
[2018-10-19] MEDS ORDERED: COLCRYS0.6 MG PO (15:18)
[2018-10-19] MEDS ORDERED: PLAVIX75 MG PO (16:19)
--- NOTE | 2018-10-19 16:34 | MORECARE ---
CASE MANAGEMENT DISCHARGE SUMMARY PATIENT: CADE HERRON UNIT: [id number] ADM DATE: 10/08/18 AGE: 83 : 37 SEX: M ROOM/BED: D[facility] AUTHOR: ALEXA,DOC PHYSICIAN: REFERRING PHYSICIAN: ANDRIA HAMILTON MD DATE OF SERVICE: 10/19/18 Discharge Plan Patient Name: CADE HERRON Facility: [facility]:[place] : 1935 Planned Disposition: [facility] Facility Anticipated Discharge Date: Discharge Date: Expected LOS: Initial Reviewer: [email or web address] Initial Review Date: 10/12/2018 Generated: 10/19/18 5:34 pm Comments DCP- Discharge Planning Updated by [email or web address]: Carla Abdi on 10/16/18 1:[address] CM spoke with Dr. Santos and Dr. Burt to see if I could set up P2P for Inpatient Rehab. Dr. Santos stated that if [employer] is saying SNF rehab then they will not overturn denial. Patient and spouse discussed options and signed CASIE for [facility] . CM contacted Addie @ [facility] and faxed [phone] over records. CM awaiting approval decision. CM will continue to follow and assist as needed with discharge planning / needs. DCP- Discharge Planning Updated by [email or web address]: Carla Abdi on 10/15/18 3:[address] CM received notification that patient insurance has denied Inpatient Rehab. CM spoke with Tika Hamilton's nurse regarding denial and that Dr. Hamilton could do P2P [phone] for appeal. CM spoke to Dr. Hamilton and denied doing a P2P @ this time. CM contacted patient's Terri and explained denial. She stated that she would contact [facility] and see what she could get done. MARIJA has explained to both Dr. Hamilton and patient and his spouse (Terri) that [employer]ui stated that patient has been approved for SNF Rehab. CM will continue to follow and assist as needed with discharge planning/ needs. 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 Patient states he plans on returning home after discharge with his . Patient states he will have family transport him home via private vehicle. Patient denies any discharge needs at this time. CM will continue to follow and assist as needed for discharge planning / needs. Vending Machine Technician: Carla Abdi DCP- Discharge Planning Updated by [email or web address]: Carla Abdi on 10/09/18 7:[address] CM attempted to meet with patient at bedside. He is currently having NG tube placed. CM will continue to follow and assist as needed with discharge planning / needs. DCPIA - Discharge Planning Initial Assessment Updated by [email or web address]: Carla Abdi on 10/13/18 9:12 am * Is the patient Alert and Oriented? Yes * How many steps to enter\exit or inside your home? * PCP ALO * [facility] * Preadmission Environment Home with Family * ADLs Independent * Equipment CPAP * Other Equipment CANE , WALKER * List name and contact numbers for known caregivers / representatives who currently or will assist patient after discharge: TERRI HERRON - - [phone], * Verbal permission to speak to the caregivers and representatives has been obtained from the patient. Yes * Community resources currently utilized None * Additional services required to return to the preadmission environment? No * Can the patient safely return to the preadmission environment? Yes * Has this patient been hospitalized within the prior 30 days at any hospital? No Last DP export: 10/16/18 1:47 p Patient Name: CADE HERRON Page [id number] at 1634 All edits/amendments must be made on the electronic document DICTATION DATE: 10/19/18 1633 ORANGE PICKING SUPERVISOR: EVA 10/19/18 1633 RPT#: [id number] DC DATE: STATUS: ADM IN [facility] [address] [place] [address] END OF REPORT
--- NOTE | 2018-10-19 16:35 | NUR ---
OT NOTE: PT COMPLETED BUE AROM EXS FOR INCREASED AX TOLERANCE. PT COMPLETED ORAL HYGIENE WITH SET UP. THANK YOU, TAMMI PASTOR
--- NOTE | 2018-10-19 16:56 | MORECARE ---
CASE MANAGEMENT DISCHARGE SUMMARY PATIENT: CADE HERRON UNIT: [id number] ADM DATE: 10/08/18 AGE: 83 : 37 SEX: M ROOM/BED: D[facility] AUTHOR: ALEXA,DOC PHYSICIAN: REFERRING PHYSICIAN: ANDRIA HAMILTON MD DATE OF SERVICE: 10/19/18 Discharge Plan Patient Name: CADE HERRON Facility: [facility]:[place] : 1935 Planned Disposition: Senior Living Facility Anticipated Discharge Date: Discharge Date: Expected LOS: Initial Reviewer: [email or web address] Initial Review Date: 10/12/2018 Generated: 10/19/18 5:56 pm Comments DCP- Discharge Planning Updated by [email or web address]: Carla Abdi on 10/19/18 3:[address] CM received notification that patient has been accepted [facility] .. CM notified nursing and Tika Hamilton's nurse. [facility] will set up transportation van to transport patient to facility. Nursing to call report and d/c records faxed to [facility]. IMM explained and served 10/19/18 @ 1128. CM will continue to follow and assist as needed with discharge planning / needs. DCP- Discharge Planning Updated by [email or web address]: Carla Abdi on 10/16/18 1:[address] CM spoke with Dr. Santos and Dr. Burt to see if I could set up P2P for Inpatient Rehab. Dr. Santos stated that if [employer] is saying SNF rehab then they will not overturn denial. Patient and spouse discussed options and signed CASIE for [facility] . CM contacted Addie @ [facility] and faxed [phone] over records. CM awaiting approval decision. CM will continue to follow and assist as needed with discharge planning / needs. DCP- Discharge Planning Updated by [id number]: Carla Abdi on 10/15/18 3:[address] CM received notification that patient insurance has denied Inpatient Rehab. CM spoke with Tika Hamilton's nurse regarding denial and that Dr. Hamilton could do P2P [phone] for appeal. CM spoke to Dr. Hamilton and denied doing a P2P @ this time. CM contacted patient's Terri and explained denial. [facility]. MARIJA has explained to both Dr. Hamilton and patient and his spouse (Terri) that [facility]ui stated that patient has been approved for SNF Rehab. CM will continue to follow and assist as needed with discharge planning/ needs. DCP- Discharge Planning Updated by [email or web address]: Carla Abdi on 10/13/18 8:[address] LATE ENTRY 10/12/18 @ 1445 Patient Name: CADE HERRON Admission Status: Elective Accout number: [id number] Admission Date: 10-08-2018 : 1935 Admission Diagnosis:ATHSCL HEART DISEASE OF [place] CORONARY ARTERY W/O ANG Attending: ANDRIA HAMILTON Current LOS: 5 Anticipated DC Date: Planned Disposition: Home Primary Insurance: [employer] PPO M[employer] Discharge Planning Comments: CM met with patient at bedside after obtaining verbal consent. Patient states he plans on returning home after discharge with his . Patient states he will have family transport him home via private vehicle. Patient denies any discharge needs at this time. CM will continue to follow and assist as needed for discharge planning / needs. Baler: Carla Abdi DCP- Discharge Planning Updated by [email or web address]: Carla Abdi on 10/09/18 7:[address] CM attempted to meet with patient at bedside. He is currently having NG tube placed. CM will continue to follow and assist as needed with discharge planning / needs. DCPIA - Discharge Planning Initial Assessment Updated by [email or web address]: Carla Abdi on 10/13/18 9:12 am * Is the patient Alert and Oriented? Yes * How many steps to enter\exit or inside your home? * PCP ALO * [facility] * Preadmission Environment Home with Family * ADLs Independent * Equipment CPAP * Other Equipment CANE , WALKER * List name and contact numbers for known caregivers / representatives who currently or will assist patient after discharge: TERRI HERRON - - [phone], * Verbal permission to speak to the caregivers and representatives has been obtained from the patient. Yes * Community resources currently utilized None * Additional services required to return to the preadmission environment? No * Can the patient safely return to the preadmission environment? Yes * Has this patient been hospitalized within the prior 30 days at any hospital? No Last DP export: 10/19/18 3:34 p Patient Name: CADE HERRON Page [id number] at 1656 All edits/amendments must be made on the electronic document DICTATION DATE: 10/19/181655 METAL AND PLASTIC HEATER: EVA 10/19/181655 RPT#: [id number] DC DATE: STATUS: ADM IN [facility] [address] [place] [address] END OF REPORT
--- NOTE | 2018-10-19 17:08 | NUR ---
REPORT CALLED TO RICARDO MARSHALL RN. PT HAS URINATED SINCE ROBLERO REMOVED. DINNER AND DOSE OF INSULIN GIVEN PER ORDERS.
--- NOTE | 2018-10-19 17:33 | NUR ---
DISCHARGE INSTRUCTIONS PROVIDED TO PATIENT, AND DAUGHTER. MIDLINE IV REMOVED, TIP INTACT. NO BLEEDING. SITE COVERED WITH GAUZE AND TEGADERM DRESSING.
--- NOTE | 2018-10-20 10:09 | MORECARE ---
CASE MANAGEMENT DISCHARGE SUMMARY PATIENT: CADE HERRON UNIT: [id number] ADM DATE: 10/08/18 AGE: 83 : 37 SEX: M ROOM/BED: D[facility] AUTHOR: ALXEA,DOC PHYSICIAN: REFERRING PHYSICIAN: ANDRIA HAMILTON MD DATE OF SERVICE: 10/20/18 Discharge Plan Patient Name: CADE HERRON Facility: [facility]:[place] : 1935 Planned Disposition: Longterm Facility Anticipated Discharge Date: Discharge Date: 10/19/2018 Expected LOS: Initial Reviewer: [email or web address] Initial Review Date: 10/12/2018 Generated: 10/20/18 11:09 am Comments DCP- Discharge Planning Updated by [email or web address]: Carla Abdi on 10/19/18 3:[address] CM received notification that patient has been accepted [facility] .. CM notified nursing and Tika Hamilton's nurse. [facility] will set up transportation van to transport patient to facility. Nursing to call report and d/c records faxed to [facility]. IMM explained and served 10/19/18 @ 6393. CM will continue to follow and assist as needed with discharge planning / needs. DCP- Discharge Planning Updated by [email or web address]: Carla Abdi on 10/16/18 1:[address] CM spoke with Dr. Santos and Dr. Burt to see if I could set up P2P for Inpatient Rehab. Dr. Santos stated that if [employer] is saying SNF rehab then they will not overturn denial. Patient and spouse discussed options and signed CASIE for [facility] . CM contacted Addie @ [facility] and faxed [phone] over records. CM awaiting approval decision. CM will continue to follow and assist as needed with discharge planning / needs. DCP- Discharge Planning Updated by [email or web address]: Carla Abdi on 10/15/18 3:[address] CM received notification that patient insurance has denied Inpatient Rehab. CM spoke with Tika Hamilton's nurse regarding denial and that Dr. Hamilton could do P2P [phone] for appeal. CM spoke to Dr. Hamilton and denied doing a P2P @ this time. CM contacted patient's Terri and explained denial. [facility] could get [facility]. MARIJA has explained to both Dr. Hamilton and patient and his spouse (Terri) that [employer]ui stated that patient has been approved for SNF Rehab. CM will continue to follow and assist as needed with discharge planning/ needs. DCP- Discharge Planning Updated by [email or web address]: Carla Abdi on 10/13/18 8:[address] LATE ENTRY 10/12/18 @ 1445 Patient Name: CADE HERRON Admission Status: Elective Accout number: [id number] Admission Date: 10-08-2018 : 1935 Admission Diagnosis:ATHSCL HEART DISEASE OF [place] CORONARY ARTERY W/O ANG Attending: ANDRIA HAMILTON Current LOS: 5 Anticipated DC Date: Planned Disposition: Home Primary Insurance: [employer] CHO[employer] PPO [facility] ADVANT Discharge Planning Comments: CM met with patient at bedside after obtaining verbal consent. Patient states he plans on returning home after discharge with his . Patient states he will have family transport him home via private vehicle. Patient denies any discharge needs at this time. CM will continue to follow and assist as needed for discharge planning / needs. Stoker Installer: Carla Abdi DCP- Discharge Planning Updated by [email or web address]: Carla Abdi on 10/09/18 7:[address] CM attempted to meet with patient at bedside. He is currently having NG tube placed. CM will continue to follow and assist as needed with discharge planning / needs. DCPIA - Discharge Planning Initial Assessment Updated by [email or web address]: Carla Abdi on 10/13/18 9:12 am * Is the patient Alert and Oriented? Yes * How many steps to enter\exit or inside your home? * PCP ALO * [facility] * Preadmission Environment Home with Family * ADLs Independent * Equipment CPAP * Other Equipment CANE , WALKER * List name and contact numbers for known caregivers / representatives who currently or will assist patient after discharge: TERRI HERRON - - [phone], * Verbal permission to speak to the caregivers and representatives has been obtained from the patient. Yes * Community resources currently utilized None * Additional services required to return to the preadmission environment? No * Can the patient safely return to the preadmission environment? Yes * Has this patient been hospitalized within the prior 30 days at any hospital? No Coverage Notice Reviewer: [email or web address] Hal Abdi Notice Issued Date-Time: 10/19/2018 15:50 Notice Type: IM Discharge Notice Notice Delivered To: Family Member Relationship to Patient: Spouse Bag Presser Name: Terri Herron Delivery Method: HAND - Hand Delivered Barb Days: Prior Verbal Notification: Recipient Understood Notice: Yes Recipient Signature: Yes Med Rec Note Co-signed by Attending: Coverage Notice Comment: Last DP export: 10/19/18 3:56 p Patient Name: CADE HERRON Page 45664 at 1009 All edits/amendments must be made on the electronic document DICTATION DATE: 10/20/18 1008 DELIVERER OUTSIDE: EVA 10/20/18 1008 RPT#: [id number] DC DATE:10/19/18 STATUS: DIS IN [facility] [address] [place] [address] END OF REPORT
== END 2018-10-19 17:34 | DRG 236 ==
LOC: D.SDCHOLD 10-02 07:30 → D.CVICU 10-08 05:00 → D.SDCHOLD 10-08 07:30 → D.CVICU 10-08 10:36
PROVIDERS: Family Medicine; Internal Medicine Cardiovascular Disease; Internal Medicine Nephrology; Nurse Practitioner Family; ADMIT Thoracic Surgery (Cardiothoracic Vascular Surgery)
PROC: 021209W Bypass Coronary Artery, Three Arteries from Aorta with Autologous Venous Tissue, Open Approach (ICD-10-PCS; 2018-10-08)
PROC: 06BP4ZZ Excision of Right Saphenous Vein, Percutaneous Endoscopic Approach (ICD-10-PCS; 2018-10-08)
PROC: 5A1221Z Performance of Cardiac Output, Continuous (ICD-10-PCS; 2018-10-08)
PROC: B24BZZ4 Ultrasonography of Heart with Aorta, Transesophageal (ICD-10-PCS; 2018-10-08)
PROC: 02100Z9 Bypass Coronary Artery, One Artery from Left Internal Mammary, Open Approach (ICD-10-PCS; principal; 2018-10-08 07:30)
PROC: 05HY33Z Insertion of Infusion Device into Upper Vein, Percutaneous Approach (ICD-10-PCS; 2018-10-12)
DX: I25.10 Atherosclerotic heart disease of native coronary artery without angina pectoris (principal); N17.9 Acute kidney failure, unspecified; K56.7 Ileus, unspecified; K21.9 Gastro-esophageal reflux disease without esophagitis; I12.9 Hypertensive chronic kidney disease with stage 1 through stage 4 chronic kidney disease, or unspecified chronic kidney disease; E11.22 Type 2 diabetes mellitus with diabetic chronic kidney disease; N18.3 Chronic kidney disease, stage 3 (moderate); D64.9 Anemia, unspecified; G47.33 Obstructive sleep apnea (adult) (pediatric); E78.5 Hyperlipidemia, unspecified; M10.9 Gout, unspecified; R60.0 Localized edema

== ENCOUNTER → 2018-09-30 10:02 | Outpatient (CLI) | payer MEDICARE ==
[2018-09-23 11:29] VITALS: BMI 32.7
[~2018-09-30 10:02] MED LIST changes: +COLACE100 MG PO; +COLCRYS0.6 MG PO; +LOPRESSOR25 MG PO; +PROBENECID-COL1 EACH PO
[2018-09-30 10:34] LABS: CALCIUM 8.2 mg/dL (8.5-10.1); CARBON DIOXIDE 26.1 mmol/L (21.0-32.0); CREATININE - SERUM 1.8 mg/dL (0.6-1.3)
[2018-09-30 10:37] LABS: POTASSIUM - SERUM 5.1 mmol/L (3.5-5.1)
== END | disposition home or self-care (01) ==
LOC: D.RAD 08:00 → D.LAB 08:00
PROVIDERS: Thoracic Surgery (Cardiothoracic Vascular Surgery)
DX: N28.9 Disorder of kidney and ureter, unspecified (principal)

== ENCOUNTER → 2018-10-05 08:10 | Outpatient (CLI) | payer MEDICARE ==
[2018-09-23 11:29] VITALS: BMI 32.7
== END | disposition home or self-care (01) ==
LOC: D.US 08:00
DX: Z01.812 Encounter for preprocedural laboratory examination (principal)

== ENCOUNTER → 2018-11-04 09:15 | Outpatient (CLI) | payer MEDICARE ==
[2018-10-11 20:55] VITALS: BMI 33.1
[2018-11-04 11:23] LABS: BASOPHILS 0.4 % (0-2); EOSINOPHILS 3.9 % (0-7); HEMATOCRIT 37.8 % (42.0-54.0); HEMOGLOBIN 12.6 g/dL (13.5-17.5); IMMATURE GRANULOCYTES 0.4 % (0-5); LYMPHOCYTES 28.5 % (15-50); MCH 29.1 pg (26.0-34.0); MCHC 33.3 g/dL (31.0-37.0); MCV 87.3 fL (80.0-100.0); MEAN PLATELET VOLUME 11.1 fL (7.4-10.4); MONOCYTES 11.8 % (2-11); RBC 4.33 10x6/uL (4.20-6.10); RDW 13.2 % (11.5-14.5); WBC 5.2 10x3/uL (4.8-10.8)
[2018-11-04 11:36] LABS: PLATELET COUNT 127 10x3/uL (130-400)
[2018-11-04 11:42] LABS: ALBUMIN 3.6 g/dL (3.4-5.0); ANION GAP 16.8 mmol/L (8-16); BILIRUBIN - TOTAL 0.56 mg/dL (0.2-1.3); CARBON DIOXIDE 25.4 mmol/L (21.0-32.0); CREATININE - SERUM 1.8 mg/dL (0.6-1.3); POTASSIUM - SERUM 4.2 mmol/L (3.5-5.1); PROTEIN - SERUM 7.7 g/dL (6.4-8.2)
== END | disposition home or self-care (01) ==
LOC: D.LAB 09:15
PROVIDERS: ATTEND Thoracic Surgery (Cardiothoracic Vascular Surgery)
DX: D64.9 Anemia, unspecified (principal); J90 Pleural effusion, not elsewhere classified

== ENCOUNTER → 2018-11-04 10:30 | Outpatient (CLI) | payer MEDICARE ==
[2018-10-11 20:55] VITALS: BMI 33.1
== END | disposition home or self-care (01) ==
LOC: D.LAB 10-05 09:30 → D.RAD 10:30
PROVIDERS: ATTEND Internal Medicine Cardiovascular Disease
DX: D64.9 Anemia, unspecified (principal); J90 Pleural effusion, not elsewhere classified

== ENCOUNTER 2018-11-06 17:38 | Emergency (ER) | payer MEDICARE ==
[~2018-11-06] VITALS: Ht 185.4 cm; Wt 97.3 kg
[2018-11-06 17:40] VITALS: Ht 185.4 cm; Wt 97.3 kg
[2018-11-06 19:47] LABS: APTT 27.3 SECONDS (22.8-39.4); INR 1.04 (0.85-1.17); PROTIME 13.1 SECONDS (11.6-15.0)
[2018-11-06 19:51] LABS: ALBUMIN 3.1 g/dL (3.4-5.0); ALKALINE PHOSPHATASE 114 U/L (46-116); ALT (SGPT) 19 U/L (10-68); BILIRUBIN - TOTAL 0.34 mg/dL (0.2-1.3); CALC OSMOLALITY 292 mosm/kg (275-300); CALCIUM 8.3 mg/dL (8.5-10.1); CARBON DIOXIDE 23.8 mmol/L (21.0-32.0); CHLORIDE - SERUM 109 mmol/L (98-107); CREATININE - SERUM 1.8 mg/dL (0.6-1.3); POTASSIUM - SERUM 3.8 mmol/L (3.5-5.1); PROTEIN - SERUM 6.7 g/dL (6.4-8.2); SODIUM 145 mmol/L (136-145); UREA NITROGEN 27 mg/dL (7-18); eGFR NON AFRICAN AMERICAN 39 mL/min (90-120)
[2018-11-06 19:53] LABS: GLUCOSE 83 mg/dL (74-106)
[2018-11-06 20:02] LABS: CKMB 0.5 U/L (0.0-3.6); CREATINE KINASE 37 UL (21-232); MAGNESIUM - SERUM 1.5 mg/dL (1.8-2.4); TROPONIN-I 0.026 ng/mL (0.000-0.060)
[2018-11-06 20:03] LABS: BASOPHILS 0.5 % (0-2); EOSINOPHILS 4.7 % (0-7); HEMATOCRIT 30.6 % (42.0-54.0); HEMOGLOBIN 10.2 g/dL (13.5-17.5); IMMATURE GRANULOCYTES 0.2 % (0-5); LYMPHOCYTES 25.7 % (15-50); MCH 28.3 pg (26.0-34.0); MCHC 33.3 g/dL (31.0-37.0); MEAN PLATELET VOLUME 11.1 fL (7.4-10.4); NEUTROPHILS 57.9 % (40-80); PLATELET COUNT 104 10x3/uL (130-400); RDW 13.2 % (11.5-14.5); WBC 4.3 10x3/uL (4.8-10.8)
[2018-11-06 23:34] VITALS: BP 101/44
== END 2018-11-06 23:34 | disposition home or self-care (01) ==
LOC: D.ER 17:38
PROVIDERS: Family Medicine
DX: I95.9 Hypotension, unspecified (principal); R06.2 Wheezing

== ENCOUNTER 2018-12-31 12:07 | Emergency (ER) | payer MEDICARE ==
[2018-12-31 12:16] VITALS: BMI 29.2
[2018-12-31 12:34] LABS: BASOPHILS 0.2 % (0-2); HEMATOCRIT 36.1 % (42.0-54.0); HEMOGLOBIN 11.7 g/dL (13.5-17.5); IMMATURE GRANULOCYTES 0.2 % (0-5); LYMPHOCYTES 27.3 % (15-50); MCH 29.1 pg (26.0-34.0); MCHC 32.4 g/dL (31.0-37.0); MCV 89.8 fL (80.0-100.0); MEAN PLATELET VOLUME 10.2 fL (7.4-10.4); MONOCYTES 12.8 % (2-11); NEUTROPHILS 55.5 % (40-80); RBC 4.02 10x6/uL (4.20-6.10); RDW 14.8 % (11.5-14.5); WBC 4.2 10x3/uL (4.8-10.8)
[2018-12-31 12:41] LABS: ALBUMIN 3.6 g/dL (3.4-5.0); ALKALINE PHOSPHATASE 77 U/L (46-116); ALT (SGPT) 17 U/L (10-68); BILIRUBIN - TOTAL 0.39 mg/dL (0.2-1.3); CALC OSMOLALITY 290 mosm/kg (275-300); CALCIUM 8.9 mg/dL (8.5-10.1); CARBON DIOXIDE 26.6 mmol/L (21.0-32.0); CHLORIDE - SERUM 106 mmol/L (98-107); CREATININE - SERUM 1.6 mg/dL (0.6-1.3); POTASSIUM - SERUM 4.1 mmol/L (3.5-5.1); PROTEIN - SERUM 7.3 g/dL (6.4-8.2); SODIUM 142 mmol/L (136-145); UREA NITROGEN 21 mg/dL (7-18); eGFR NON AFRICAN AMERICAN 44 mL/min (90-120)
[2018-12-31 12:43] LABS: GLUCOSE 188 mg/dL (74-106)
[2018-12-31 12:49] LABS: INR 0.94 (0.85-1.17); PLATELET COUNT 133 10x3/uL (130-400); PROTIME 12.1 SECONDS (11.6-15.0)
[2018-12-31 12:51] LABS: CKMB 0.9 U/L (0.0-3.6); CREATINE KINASE 60 UL (21-232); MAGNESIUM - SERUM 1.9 mg/dL (1.8-2.4)
[2018-12-31 12:53] LABS: TROPONIN-I < 0.017 ng/mL (0.000-0.060)
[2018-12-31] MEDS ORDERED: FERROUS SULFAT325 MG PO (14:55)
[2018-12-31 16:11] VITALS: BP 120/67
== END 2018-12-31 16:12 | disposition home or self-care (01) ==
LOC: D.ER 12:07
PROVIDERS: Emergency Medicine
DX: R07.89 Other chest pain (principal); D64.9 Anemia, unspecified

== ENCOUNTER → 2019-09-21 09:19 | Outpatient (CLI) | payer OTHER ==
[~2019-09-21 09:19] MED LIST changes: +FERROUS SULFAT325 MG PO
== END | disposition home or self-care (01) ==
LOC: D.HCCARDIO 09:19
PROVIDERS: ATTEND Internal Medicine Cardiovascular Disease
DX: I25.810 Atherosclerosis of coronary artery bypass graft(s) without angina pectoris (principal)